=== PATIENT | female | born 1960 | race Caucasian/White ===

== ENCOUNTER 2025-04-05 23:45 | Inpatient (IN) | payer BC, SELFPAY ==
[2025-04-05] VITALS (11 sets, daily range): BP systolic 99–119; BP diastolic 41–74; BMI 24.4
--- NOTE | 2025-04-05 22:05 | ED.CVA ---
History of Present Illness
General
Chief Complaint: CVA/TIA Symptoms
Source: patient, family and ambulance crew
Exam Limitations: altered mental status
Time Seen by Provider: 04/05/25 22:02
Nursing documentation reviewed up to this point in time: agreed with
Onset of Stroke Symptoms
Onset of symptoms known: Yes
Date of onset of symptoms: 04/05/25
Time of onset of symptoms: 21:30
Time pt last seen normal is known: Yes
Date last time pt seen normal: 04/05/25
Time last time pt seen normal: 20:45
History of Present Illness
History of Present Illness:
Pt presents to ED secondary to sudden onset of inability to speak with facial droop, noted by daughter around 9:30pm. Daughter called 911 immediately. Upon arrival, patient is alert/awake but nonverbal, but following commands and moving extremities
spontaneously. Per daughter, pt has had previous history facial droop secondary to bells palsy, which had resolved completely. Of note, due to recent passing of her parent, patient has been depressed along with nausea sensation for the past 2 days,
with poor oral intake. As such, daughter had decided to take the patient to her house today. Last seen normal around 8:45pm.
Review of Systems
Review of Systems
Allergies reviewed?: Yes
All Other Systems: ROS reviewed and negative except as documented in HPI and ROS
Constitutional: Reports no symptoms
Respiratory: Reports no symptoms
Cardiac: Reports no symptoms
ABD/GI: Reports nausea and vomiting
Musculoskeletal: Reports no symptoms
Skin: Reports no symptoms
Neurological: Reports other (facial droop and speech impairment)
Phy Exam
Physical Exam
Physical Exam:
Physical Exam
General: mild distress, not acutely ill. afebrile
Head: nc/at. eomi
Neck: supple. no meningeal signs.
Heart: s1/s2 regular rate and rhythm
Lungs: no acute respiratory distress. clear bilaterally
Abdomen: normal bowel sounds. not tender.
Neuro: alert and oriented x 3. no focal motor deficit. nonverbal. right facial droop
Skin: no rash
Psychiatric: well kept. interactive and cooperative
Extremities: no edema. no calf tenderness.
Course
Orders/Labs/Results
Orders:
Orders
04/05/25 21:55
Electrocardiogram (*1) Urgent
Reason for Study: Other
Other Reason for Exam: Possible Stroke
Bedside Glucose- Treatment ONCE
Cardiac Monitoring- Treatment ONCE
Vital Signs As Directed
Frequency: Other
04/05/25 21:56
CT BRAIN PERF STROKE ALERT Stat
Comment: wrong exam ordered by RN
Reason For Exam: cva
CT HEAD STROKE ALERT W/o Cont Stat
Comment:
Reason For Exam: cva
CT HEAD/NECK ANG STROKE ALERT Stat
Comment:
Reason For Exam: cva
EKG- Treatment ONCE
04/05/25 21:58
Complete Blood Count/With Diff Urgent
Comprehensive Metabolic Panel Urgent
PTT Urgent
Prothrombin Time Urgent
04/05/25 21:59
Troponin I Urgent
04/05/25 22:26
Tenecteplase [Tnkase] 16 mg Syringe [Syringe Non-Pump] 0 ml IV NOW
04/05/25 23:15
Admit/Transfer Patient As Directed
Co-Sign Provider:
Level of Care: Inpatient admission
Assign to:: ICU
Physician / Group: carter
Diagnosis: CVA
Reason for Hospitalization: CVA
Expected length of stay greater than two midnights?: Yes
ELOS- Estimated Length of Stay in days: 3
I certify the patient meets the requirements for IP care: Yes
Code Status As Directed
Resuscitation Status: Full Code
PRN Pain Medication Management As Directed
May give lesser potent ordered pain med per pt: Yes
preference::
Protocol:: Medication orders for pain may be administered in a
manner that supports deferring to patient preference
when the pt is:
- Requesting an ordered lesser potent pain medication.
Least to most potent pain medications are defined
as: acetaminophen < NSAID < tramadol < opioids
(morphine, oxycodone, hydromorphone).
- Requesting a lesser dose of the same medication IF
ORDERED.
- Requesting a less intrusive route of administration
if both routes are prescribed by the provider (PO <
IV).
04/06/25 00:29
0.9% Sodium Chloride 1000 ml [Nss] 1,000 ml IV 80 mls/hr
Acetaminophen [Tylenol] 650 mg PO Q4HPRN PRN
04/06/25 00:29
Echo 2D MMode Color/Doppler Routine
Reason for Study: stroke/TIA
Electrocardiogram (*1) Routine
Reason for Study: TIA/Stroke
CARDIOLOGY CONSULT Routine
Consulting Provider: Joanie Cedillo
Was physician already notified: No
Reason for consult: elevated trop.
Case Management Consult Once
Case Management Consult: Discharge Planning
Consult Notification Routine
Specialty to Notify: Cardiology
Consult Notification Routine
Specialty to Notify: Neurology
Consult Notification Routine
Specialty to Notify: Physiatry
DIETARY IP CONSULT Routine
Reason for Consult: stroke/TIA
Implementation Advisor Consult Routine
Consulting Provider: Tawanna Urias
Was physician already notified: Yes
NEUROLOGY CONSULT Urgent
Consulting Provider: Leon Gallagher
Was physician already notified: No
Reason for consult: TIA s/p TNK
Conveyor Belt Repairer Urgent
Glycohemoglobin (HgbA1c) Routine
Comment: If not done in the ED
MR Brain Without Contrast Routine
Comment: complete 24 hrs post tenecteplase administration
Reason For Exam: possible stroke, status post tenecteplase
Recent pill cam endoscopy?: No
Hemetest Stools As Directed
Comment: hemoccult all stools if patient received tenecteplase
NIH Stroke Scale As Directed
Directions: Other
Comment: NIH stroke Scale to be completed prior to thrombolytic administration, then every 1 hour for 2
hours, then every shift and with change in condition and/or mental status.
Neurological Checks As Directed
Frequency: Per unit guidelines
Additional Instructions:: after start of thrombolytic therapy:
q15min x 2 hrs, q30min x 6 hrs, q1h x 16 hrs, q4h x 24 hrs, then every shift and
with any changes.
Notify MD As Directed
Notify physician if: - Any deterioration, change in neurological status, development of severe headache,
nausea and vomiting, or with any signs of bleeding. (see guidelines for suspected
intracerebral hemorrhage).
- If intracranial hemorrhage is suspected or confirmed by imaging, anticipate need for
osmotic diuretic to maintain euvolemia.
Notify MD As Directed
Notify physician if: Glucose less than 70 or greater than 180.
Anticipate corrective insulin orders.
Notify MD As Directed
Notify physician if: unable to obtain MRI of head within 22-32 hours of tenecteplase administration
- contact Neurology for order for CT of head without contrast
Patient Education As Directed
Type: Stroke education packet
Comment: provide to patient and family
Pneumatic Compression Sleeves As Directed
Type: Thigh high
Precautions As Directed
Type of Precautions: Bleeding
Comment: post Bleeding Precaution sign at bedside (if patient received tenecteplase)
Swallow Screening CVA/TIA ONLY As Directed
Comment: NPO until swallow screening completed
If patient FAILS swallow screening:: NPO and Speech consult and aspiration precautions
If patient PASSES swallow screening, diet:: Regular
Thrombolytic Precautions As Directed
Thrombolytic Precautions:: [place] bleeding precautions. Minimize invasive procedures and venipunctures,
avoid IM injections and over-handling patient, and check all puncture sites for
bleeding. Assess the patient and notify provider for signs and symptoms of
internal or serious bleeding, such as changes in vital signs or evidence of blood
in the urine or stool.
Additional instructions: Hemocult all stools.
Apply direct pressure or pressure dressing to any compressible puncture sites.
No ABG sampling or Alejandra insertion after Tenecteplase administration for 24 hours,
unless directed by the Neurologist/Attending.
Vital Signs As Directed
Frequency: q15m
Call for:: BP greater than 180/105 mmHg or less than 100/60 mmHg
Additional Instructions:: after start of thrombolytic therapy:
q15min x 2 hrs, q30min x 6 hrs, q1h x 16 hrs, q4h x 24 hrs, then every shift and
with any changes.
Ot Eval And Treat Routine
Physiatry Consult Routine
Consulting Provider: Ricky Gonsalves
Was physician already notified: No
Reason for consult: stroke/TIA
Pt Eval And Treat Routine
Activity Level: As Tolerated
Speech Therapy Eval & Treat Routine
DX Deep Vein Thrombosis Video Routine
04/06/25 00:34
Troponin I Q4H
04/06/25 04:29
Troponin I Q4H
04/06/25 06:00
Basic Metabolic Panel IN AM
Cardiovascular Evaluation IN AM
Complete Blood Count/No Diff IN AM
HCV Quantitative by NAAT [S] IN AM
Hepatitis A Antibody, Total IN AM
Hepatitis A IgM Antibody IN AM
Hepatitis B Core Ab, IgM IN AM
Hepatitis B Core Ab, Total IN AM
Hepatitis B Surface Antibody IN AM
Hepatitis B Surface Antigen IN AM
Hepatitis C Antibody IN AM
LFT [Rsivn-Zokp-Pyydhfm] IN AM
PTT IN AM
Prothrombin Time IN AM
04/06/25 08:00
US Abdomen Complete/Upper Routine
Comment:
Reason For Exam: Hepatitis
04/06/25 18:00
Atorvastatin [Lipitor] 40 mg PO QPM
Abnormal Lab Results
04/05/25 04/05/25 04/05/25
21:58 21:59 22:49
WBC 11.6 H 10^3/uL
(4.8-10.8)
RBC 4.09 L 10^6/uL
(4.20-5.40)
MCH 31.5 H pg
(27.0-31.0)
MPV 11.1 H fL
(7.4-10.4)
Absolute Neuts (auto) 7.2 H 10^3/uL
(1.4-6.5)
Absolute Monos (auto) 1.0 H 10^3/uL
(0.1-0.6)
BUN 21 H mg/dl
(7-17)
Glucose 123 H mg/dl
(70-99)
AST 260 H U/L
(14-36)
ALT 256 H U/L
(0-35)
Troponin I 2.730 H* ng/ml
POC Glucose 117 H mg/dl
(70-99)
04/05/25 21:58
04/05/25 21:58
Vital Signs
Initial and Last Documented VS:
Initial Vital Signs
Temp Pulse Resp BP Pulse Ox
98.7 F 80 16 99/41 99
04/05/25 21:52 04/05/25 21:52 04/05/25 21:52 04/05/25 21:52 04/05/25 21:52
Last Documented Vital Signs
Temp Pulse Resp BP Pulse Ox
98.7 F 72 20 115/54 93
04/05/25 21:52 04/06/25 00:45 04/06/25 00:45 04/06/25 00:45 04/06/25 00:45
MDM/Problems Addressed
MDM/Problems Addressed:
Stroke alert activated immediately upon evaluation. CT P/CTA/CT head ordered.
Discussed with stroke fellow at [facility] (10:12pm). Fellow will speak with his attending and call back with recommendation. In the meantime, does recommend TnK administration.
Stroke fellow (Dr.Ryan Gallagher) and attending physician logged on via robot and evaluated the patient. TnK check list recommended to be discussed with family, which was completed. Bleeding risk discussed with family, including potentially higher
than 6%, as initial CT is already revealing evidence of CVA. TnK to be administered.
TnK given @ 10:46 pm.
CTA reveals M2 occlusion. Neurology to callback with further recommendation.
Per neurology - no indication for IAT due to low NIH score. Does recommend repeat CTA, if there are any clinical changes.
Critical care statement: A total of 60 minutes of critical care time was provided for this patient. This includes management of unstable vital signs, evaluation of the patient at bedside, reviewing the patient's pertinent medical records, discussion
with consultants, review of old EKGs and review of pertinent medical records. This time with separate from time utilized to perform the aforementioned documented procedures
*Pulse Oximetry
Patient hypoxic: no
*Critical Care Note
Total Time (30-74mins, 75-104mins- exclusive of procedures): 60 min
ED Attending Note
-
Portions of this chart may have been created with voice recognition software.� Occasional wrong word or��sound alike� substitutions may have occurred due to the inherent limitations of voice recognition software.
Discharge Plan
Departure
Patient Disposition: Admit
Date of Disposition: 04/05/25
Time of Disposition: 22:54
Admit to: ICU
Presentation/result/management discussed w/ accepting MD/DO: Hospitalist
Discharge Problem:
Acute CVA (cerebrovascular accident)
Interventions
Interventions:
*Risk Screen - Suicide Last Done: 04/05/25 21:52
*General Assessment Last Done: 04/05/25 21:52
*Neglect/Abuse Screening Last Done: 04/05/25 21:52
*ED- Fall Risk Assessment Last Done: 04/05/25 21:52
*ED COVID-19 Vaccine History Last Done: 04/05/25 23:19
*Nursing Disposition Last Done: 04/06/25 00:33
ED- Pulmonary Assessment Last Done: 04/05/25 21:52
ED- Neurological Assessment Last Done: 04/05/25 21:52
ED- Cardiac Assessment Last Done: 04/05/25 21:52
ED Swallowing Screen Last Done: 04/05/25 21:52
Discharge Date and Time
Discharge Date/Time: 04/06/25 00:34
[2025-04-05 22:20] LABS: ALT (SGPT) 256 U/L (0-35); APTT 28.2 Sec (23.4-35.0); AST (SGOT) 260 U/L (14-36); Albumin 4.3 g/dl (3.5-5.0); Alkaline Phosphatase 104 U/L (38-126); Blood Urea Nitrogen 21 mg/dl (7-17); Calcium 8.6 mg/dl (8.4-10.2); Carbon Dioxide 26 mmol/L (22-30); Chloride 101 mmol/L (98-107); Estimated Creatinine Clearance 62 ml/min; Glucose 123 mg/dl (70-99); Hematocrit 37.2 % (37.0-47.0); Hemoglobin 12.9 g/dL (12.0-16.0); INR 1.09; Mean Corp Hgb Conc. 34.7 g/dL (33.0-37.0); Mean Corpuscular Volume 91.0 fL (81.0-99.0); Nucleated Red Blood Cells % 0 %; PT 14.5 Sec (11.4-14.6); Platelet Count 230 10^3/uL (130-400); Potassium 4.0 mmol/L (3.5-5.1); Red Cell Dist. Width 13.1 % (11.5-14.5); Sodium 135 mmol/L (135-145); Total Protein 7.1 g/dl (6.3-8.2); eGFR > 60.00
--- NOTE | 2025-04-05 22:23 | EDRN ---
Pharmacy aware of TNK order.
[2025-04-05 22:34] LABS: Troponin I 2.730 ng/ml
[2025-04-05] MEDS: TNKASE 3.2 MG IV (22:41)
[2025-04-05 22:50] LABS: Glucose - Point of Care 117 mg/dl (70-99)
--- NOTE | 2025-04-05 22:57 | HPS.HSE ---
Family Physician
-
Family Physician:
Chief Complaint
-
expressive aphasia and left facial droop
History of Present Illness
64 year old with anxiety presented with left facial droop and unable to speak. she was seen normal last at 8:45pm. as per daughter she was nauseous and vomited couple times. patient denied SOFIA, dizzy or syncope. denied fever, chills, chest pain, sob.
denied abdominal pain. denied dysuria or hematuria. her father on Wednesday. she is been under stress and grieving since then.
Head neck CTA n of the left middle cerebral artery M2 segment thrombus with occlusion. Head CT with questionable subtle loss of definition inferior left frontal lobe versus artifact.
Patient received TNK in the ER. Admitting for further management
Medical History
Past Medical History
Past Medical History: Reports Other
Additional Past Medical History:
Anxiety
Past Surgical History: Reports None
Social History
Tobacco: Non-smoker
Alcohol: None
Drug: None
Personal: Single
Living: Alone
Family History
Family History: Not pertinent
Allergies / Home Medications
Allergies reflects when Allergies were last updated in [facility].
Home Medications with original date entered in [facility]
Allergy/Medication List:
Allergies
Allergy/AdvReac Type Severity Reaction Status Date / Time
No Known Allergies Allergy Unverified 04/05/25 22:10
Home Medications
citalopram 20 mg tablet 20 mg PO HS 04/05/25
Review of Systems
-
Constitutional: Reports No Symptoms
EENT: Reports No Symptoms
Respiratory: Reports No Symptoms
Cardiac: Reports No Symptoms
Abdomen/GI: Reports Nausea and Vomiting
: Reports No Symptoms
Musculoskeletal: Reports No Symptoms
Skin: Reports No Symptoms
Neurological: Reports Other (Left facial droop, aphasic)
Endocrine: Reports No Symptoms
Hematologic/Lymphatic: Reports No Symptoms
Psych: Reports No Symptoms
Physical Exam
Vital Signs
Vital Signs
Temp Pulse Resp BP Pulse Ox
98.7 F 78 23 117/57 94
04/05/25 21:52 04/05/25 22:46 04/05/25 22:46 04/05/25 22:46 04/05/25 22:46
Physical Exam
General: Well Developed, Well Nourished and No Apparent Distress
HEENT: NormoCephalic, Moist mucous membranes and Atraumatic
Respiratory: Clear
Cardiac: S1/S2 and Regular Rhythm; No Murmur or Rub
GI: Soft, Non Tender, Non Distended and Normal Bowel Sounds; No Organomegaly
Rectal: Deferred by Provider
Musculoskeletal: No Clubbing, No Cyanosis and No Edema
Skin: No Rash
Neuro: Nonfocal/grossly intact and Other (Left facial droop, aphasia)
Laboratory Results
-
04/05/25 21:58
04/05/25 21:58
Laboratory Results
PT 14.5 Sec (11.4-14.6) 04/05/25 21:58
INR 1.09 04/05/25 21:58
APTT 28.2 Sec (23.4-35.0) 04/05/25 21:58
Total Bilirubin 0.8 mg/dl (0.2-1.3) 04/05/25 21:58
AST 260 U/L (14-36) H 04/05/25 21:58
ALT 256 U/L (0-35) H 04/05/25 21:58
Alkaline Phosphatase 104 U/L (38-126) 04/05/25 21:58
Troponin I 2.730 ng/ml H* 04/05/25 21:59
Data Reviewed
-
CT Scan: Report Reviewed by me
Lab Data: Labs Reviewed by me
Impression/Plan
-
# Expressive aphasia with facial droop secondary to CVA
#left middle cerebral arteryM2 segment thrombus with occlusion
- Patient received TNK in the ER
- Head and neck CTA with impression of Left middle cerebral artery M2 segment thrombus with occlusion.
- Head CT No acute intracranial hemorrhage.Questionable subtle loss of definition inferior left frontal lobe versus artifact.
-obtain MRI and ECHO
-neurology consulted
-PT/OT consulted
# Leukocytosis likely reactive
- WBCs 11.6, patient is afebrile
- Continue to monitor
#abdominal upset associated with n/v
# Transaminitis
- AST 260, ALT 256
-obtain hep panel, and abdominal US
-trend LFT in am
# Elevated troponin rule out NSTEMI
-Troponin 2.73
-Continue to trend Trope
-EKG with sinus rhythm with ST abnormality
-cards consulted
# Anxiety
-on citalopram
# DVT prophylaxis
-SCD
# CODE STATUS
-Full code
-
--- NOTE | 2025-04-05 23:28 | W.PN.UPDATE ---
Addendum entered and electronically signed by Didi Apple MD 04/05/25 23:52:
*per [facility], with patient's low NIHSS score and M2 occulsion IAT not indicated
Original Note:
Update Note
Progress Note Update
This is an addendum to H&P written by CERTIFIED SURGICAL TECH/FIRST ASSISTANT Jahaira Belcher
I saw and examined the patient.
The CERTIFIED SURGICAL TECH/FIRST ASSISTANT's note was reviewed and I agree with the note.
Comment:
Ms. Joyce Troy is a 64 yo woman with hx anxiety brought to the ER with sudden onset facial droop and expressive aphasia noticed by daughter around 9:30 PM. Patient denies chest pain. She has felt depressed with recent loss of her father 2 days
ago.
Triage VS: T 98.7, P 80, RR 16, BP 99/41, SpO2 99%
On exam patient is awake, alert. severe expressive aphasia, left facial droop, moves all 4 extremities and easily follows commands.
LABS: WBC 11.6, Hg 12.9, PLT 230, INR 1.09, Na 135, K+ 4.0, Cl 101, CO2 26, BUN 21, Cr 0.8, Glucose 123, T. Bili 0.8, AST 260, ALT 256, Alk Phos 104, Trop 2.730
EKG with TWI lateral leads
HEAD CT
IMPRESSION:
No acute intracranial hemorrhage.
Questionable subtle loss of definition inferior left frontal lobe versus artifact.
BRAIN CT
Abnormality in the left frontal operculum.
CTA
IMPRESSION:
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
Acute CVA
M2 segment thrombus
-s/p TNK at 22:41. Case discussed between ER physician Dr. Mcgowan and [facility]. Per [facility], IAT not indicated for M2 occlusion
-admit to ICU
-q1 hour neuro checks
-MRI 24 hours post tPA. start antiPLT post MRi confirming no bleed
-atorvastatin 40mg qhs
-PT/OT/ST
-Neurology consult
-Mold Cleaning And Storage Supervisor consult
Elevated Troponin
TWI lateral leads
-patient denies chest pain
-s/p TNk as above
-trend Troponin
-TTE
-Cardiology consult
Nausea/vomiting
Transaminitis
-IVF overnight, as patient NPO
-US in AM, hep serologies
Anxiety
-HRIS COORDINATOR Citalopram
DVT PPx post TNK, start 24 hours post TNK
FULL CODE
Total Critical Care Time 45 minutes. I was immediately available to the patient and staff. I personally examined, reviewed labs, diagnostic images/reports, interpretations, treatment plans, discussed patient care with other providers and family
or caregivers (if patient is unable to make decisions), entered orders as appropriate and documented the medical record.
[2025-04-06] VITALS (39 sets, daily range): BP systolic 90–132; BP diastolic 45–84; BMI 23.6; BMI 23.7
--- NOTE | 2025-04-06 00:24 | PTCARENOTE ---
Addendum entered by Slime Venegas RN 04/06/25 05:26:
Unable to complete EKG ordered at this time. EKG machine not working.
Original Note:
Patient received from the ED via stretcher accompanied by RN. Transferred and admitted to ICU bed 3361. NIHSS completed with ED RN Alanna. No facial droop noted. However, marked expressive aphasia and some receptive aphasia noted. PERRL at 3mm. No
tongue deviation. Follows commands. Some receptive aphasia noted with apraxia test of UEs with finger to finger/nose. Complete CHG cloth bath with fresh linen. IVF started per order. See sales agent business services charted on worklist flowsheet. S1S2 regular,
positive murmur. SR on CM. BBS clear. Positive pulses x 4 extremities, no edema. Bed in low and locked position, HOB up 30 degrees, bed alarm on, call mcclendon within reach.
[2025-04-06 00:32] LABS: Glucose - Point of Care 106 mg/dl (70-99)
[2025-04-06] MEDS: NSS 1000 IV (00:35)
[2025-04-06 01:13] LABS: Troponin I 2.530 ng/ml
--- NOTE | 2025-04-06 03:00 | PTCARENOTE ---
Patient oxygen saturation is 93-94%. Edwin SCHOOL CLEANER notified, order requested for prn oxygen to keep sats > 94%. SBP 91-102. Edwin SCHOOL CLEANER notified. Order received to give 250cc IVF bolus, given. Patient's expressive aphasia unchanged.
[2025-04-06] MEDS: NSS 250 IV (03:16)
--- NOTE | 2025-04-06 03:35 | PTCARENOTE ---
IVF bolus still infusing, SBP 90. No change in neuro assessment. Sats 92-93% on RA. Oxygen at 2L/nc donned.
[2025-04-06 05:06] LABS: Hematocrit 35.2 % (37.0-47.0); Hemoglobin 12.2 g/dL (12.0-16.0); Mean Corp Hgb Conc. 34.7 g/dL (33.0-37.0); Mean Corpuscular Volume 90.3 fL (81.0-99.0); Platelet Count 180 10^3/uL (130-400); Red Cell Dist. Width 12.9 % (11.5-14.5)
[2025-04-06 05:14] LABS: APTT 25.5 Sec (23.4-35.0); INR 1.12; PT 14.7 Sec (11.4-14.6)
--- NOTE | 2025-04-06 05:26 | PTCARENOTE ---
Essentially no change in patient's neurological or physical assessment. Denies pain. Repositioning self in bed. AM labs drawn. Unable to perform EKG, attempts to put information in EKG manually unsuccessful. VSS-- Sats 99% on 2L/nc. BP improved
after IVF bolus.
[2025-04-06 05:47] LABS: Troponin I 1.650 ng/ml
[2025-04-06 05:49] LABS: ALT (SGPT) 175 U/L (0-35); AST (SGOT) 139 U/L (14-36); Albumin 2.8 g/dl (3.5-5.0); Alkaline Phosphatase 64 U/L (38-126); Blood Urea Nitrogen 14 mg/dl (7-17); Calcium 6.4 mg/dl (8.4-10.2); Carbon Dioxide 20 mmol/L (22-30); Chloride 114 mmol/L (98-107); Estimated Creatinine Clearance 83 ml/min; Glucose 87 mg/dl (70-99); HDL Cholesterol 37 mg/dl; LDL Cholesterol, Calculated 75 mg/dl; Potassium 3.4 mmol/L (3.5-5.1); Sodium 138 mmol/L (135-145); Total Protein 5.0 g/dl (6.3-8.2); Very Low Density Lipoprotein 19 mg/dl (0-30); eGFR > 60.00
[2025-04-06] MEDS: LR 1000 IV ×2 (06:11→21:57)
[2025-04-06] MEDS: CALCIUM GLUCONATE 130 MG IV (06:20)
--- NOTE | 2025-04-06 06:35 | PTCARENOTE ---
fuel quality tech at bedside to perform abdominal ultrasound.
--- NOTE | 2025-04-06 07:01 | CON.INTV ---
Consultation
Consultation Request
Date/Time Consultation Requested: 04/06/25
Date/Time Consultation Performed: 04/06/25
Performing Provider: Adonay
Reason for Consultation: CVA
Medical History
-
History of Present Illness:
Patient is a 64 year old with past history of anxiety presented to ER with left facial droop and inability to speak. 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 Per daughter, she was nauseous and vomited a couple times at home. Patient denied SOFIA,
dizzy, syncope, fever/chills, chest pain, SOB, abdominal pain. Head & Neck CTA demonstrated left middle cerebral artery M2 segment thrombus with occlusion. Head CT with questionable subtle loss of definition inferior left frontal lobe versus
artifact. Patient received TNK in the ER. Admitted to ICU for further management post CVA intervention.
Past Medical History
Past Medical History: Other (see list below)
Social History
Tobacco: Non-smoker
Alcohol: None
Drug: None
Family History
Family History: Reviewed & Not Pertinent
Allergies / Home Medications
Allergies
Allergy/AdvReac Type Severity Reaction Status Date / Time
No Known Allergies Allergy Unverified 04/05/25 22:10
Home Medications
�Medication �Instructions �Recorded �Confirmed �Last Taken �Type
citalopram 20 mg tablet 20 mg PO HS 04/05/25 04/05/25 Unknown History
Review of Systems
-
History Source: Patient
All other systems: Negative unless noted
Vitals / Labs / Diagnostic Testing
Vital Signs
Temp Pulse Resp BP Pulse Ox
98.3 F 71 25 114/57 98
04/06/25 03:25 04/06/25 06:30 04/06/25 06:30 04/06/25 06:30 04/06/25 06:30
Lab Data
04/06/25 04:43
04/06/25 04:44
Laboratory Results
04/05/25 04/06/25
21:58 04:45
PT 14.5 14.7 H
INR 1.09 1.12
APTT 28.2 25.5
Diagnostic Testing:
Physical Exam
-
HEENT: Normocephalic, Anicteric and Moist Mucous Membranes
Cardiovascular: S1/S2 and Regular Rhythm
Respiratory: Clear and Non-Labored Respirations
GI: Non Distended and Non Tender
Neurology: Awake, Alert, Oriented and No Motor Deficits
Skin: Warm, Dry and Good Color
General: Comfortable and Other (NAD)
Assessment
-
Patient is a 64 year old with past history of anxiety presented to ER with left facial droop and inability to speak. She was last seen normal at 8:45pm day of admission. Per daughter, she was nauseous and vomited a couple times at home. Patient
denied SOFIA, dizzy, syncope, fever/chills, chest pain, SOB, abdominal pain. Head & Neck CTA demonstrated left middle cerebral artery M2 segment thrombus with occlusion. Head CT with questionable subtle loss of definition inferior left frontal lobe
versus artifact. Patient received TNK in the ER. Admitted to ICU for further management post CVA intervention.
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
Elevated trops
N/V
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
Anxiety
Plan
s/p TNK for CVA
Neuroimaging reviewed
Neuro consult obtained
Observe overnight following administration, careful watch for signs of bleeding
Follow CBC, neurovascular checks
Repeat MRI this PM
Prior cardiac history-none known
Cards eval obtained for initial evaluation post CVA
Currently stable on RA
No prior h/o lung disease, nonsmoker
Aspiration precautions
CXR reviewed--mild cardiomeg, but no acute findings
Restart diet per protocol
Speech evaluation
GI ppx
Creat at baseline, follow UO
No signs/symptoms suspicious for infectious etiology at this time.��
Will observe off antibiotics for now.
DVT ppx held, SCDs
Can likely transfer to tele post MRI this evening
We will sign off upon transfer
Diagnostic Data
Chest X-Ray: 04/06/25- 1. Haziness of left hemidiaphragm, suggestive of left lower lobe subsegmental atelectasis. 2. Mild cardiomegaly without evidence of decompensated CHF.
EKG with TWI lateral leads
HEAD CT IMPRESSION: No acute intracranial hemorrhage. Questionable subtle loss of definition inferior left frontal lobe versus artifact.
BRAIN CT: Abnormality in the left frontal operculum.
CTA IMPRESSION: Left middle cerebral artery M2 segment thrombus with occlusion.
Echo:
PFT's:
Reports and relevant images were personally reviewed.
Critical Care time 50 mins -- The patient is admitted for acute critical illness for the treatment of vital organ failure and/or prevention of further life-threatening conditions. Total care includes time spent in review of history, physical exam,
medications, hemodynamic/ventilator parameters, laboratory data, imaging and discussion with house staff, pharmacy, respiratory therapy, retirement sales consultant, and nursing.
[2025-04-06 07:17] LABS: Glycohemoglobin (HgbA1c) 5.7 % (4.0-5.6)
[2025-04-06] MEDS: KCL 270 MEQ IV (07:34)
--- NOTE | 2025-04-06 07:37 | PTCARENOTE ---
Report given verbally to oncoming shift, Regina MACKEY. Bedside rounds complete, NIHSS complete. Questions answered.
[2025-04-06 07:38] LABS: Hepatitis B Surface Antigen Negative (Negative)
--- NOTE | 2025-04-06 07:38 | W.PN.HOSP.TC ---
Today's Communication/Plan
-
See plan
Assessment / Plan
Assessment / Plan
Physical Exam
General: Well Developed, Well Nourished and No Apparent Distress
HEENT: Normocephalic, Moist mucous membranes and Atraumatic
Respiratory: Clear
Cardiac: S1/S2 and Regular Rhythm
GI: Soft, Non Tender, Non Distended and Normal Bowel Sounds
Musculoskeletal: No Cyanosis and No Edema
Skin: Warm. Dry.
Neuro: AAOx3. Cranial Nerves 2 through 12 intact. Strength and sensation grossly intact bilaterally.
Assessment/Plan
64 y/o female with history of anxiety brought to the ER with sudden onset facial droop and expressive aphasia noticed by daughter around 9:30 PM on 04/07/25 (was last seen normal at 8:45 pm). as per As per patient's daughter, patient was nauseous
and vomited a couple times. Patient denied chest pain. She has felt depressed with recent loss of her father 2 days ago.
Triage VS: T 98.7, P 80, RR 16, BP 99/41, SpO2 99%
On exam patient is awake, alert. severe expressive aphasia, left facial droop, moves all 4 extremities and easily follows commands.
LABS: WBC 11.6, Hg 12.9, PLT 230, INR 1.09, Na 135, K+ 4.0, Cl 101, CO2 26, BUN 21, Cr 0.8, Glucose 123, T. Bili 0.8, AST 260, ALT 256, Alk Phos 104, Trop 2.730
EKG with TWI lateral leads
HEAD CT
IMPRESSION:
No acute intracranial hemorrhage.
Questionable subtle loss of definition inferior left frontal lobe versus artifact.
BRAIN CT
Abnormality in the left frontal operculum.
CTA
IMPRESSION:
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
Acute CVA
M2 segment thrombus
-s/p TNK at 22:41. Case discussed between ER physician Dr. Mcgowan and [facility]. Per [facility], IAT not indicated for M2 occlusion
*per [facility], with patient's low NIHSS score and M2 occulsion IAT not indicated
-admit to ICU
-q1 hour neuro checks
-MRI 24 hours post tPA. Stop any aspirin and clopidogrel from a neurological perspective when starting anticoagulation 48 hours after TNK.
-atorvastatin 40mg qhs
-PT/OT/ST
-Neurology consult
-Housing Installer consult
Elevated Troponin
TWI lateral leads
-patient denies chest pain
-echocardiogram�EF 40% with LV thrombus. Suspected Takotsubo cardiomyopathy in the setting of recent stress from her father's passing
-s/p TNk as above
-trend Troponin
-Patient okay for IV heparin 48 hours AFTER TNK -- so 22:41 on 04/07/25 evening.
-Cardiac catheterization on 04/08/25.
-Cardiology consult
Nausea/vomiting
Transaminitis
-IVF overnight, as patient NPO
-US: Gallbladder wall thickening of unknown etiology.
-Follow hep serologies
Anxiety
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
DVT PPx post TNK, start 24 hours post TNK
FULL CODE
Stroke s/p TNK, LV thrombus and low cardiac ejection fraction is a high risk encounter.
Anticipated Discharge: > 48 hours
Subjective/Interval History
-
Date of Service: April 06, 2025
Patient was seen and examined. She reported most of her neurologic symptoms back to normal.
Objective Data
-
Labs:
Laboratory Results
04/05/25 04/06/25 04/06/25
21:58 04:43 04:44
WBC 11.6 H 9.6
Hgb 12.9 12.2
Hct 37.2 35.2 L
Plt Count 230 180 D
PT 14.5
INR 1.09
APTT 28.2
Sodium 135 138
Potassium 4.0 3.4 L
Chloride 101 114 H
Carbon Dioxide 26 20 L
BUN 21 H 14
Creatinine 0.8 0.4 L
Glucose 123 H 87
Calcium 8.6 6.4 L* D
Total Bilirubin 0.8 0.6
AST 260 H 139 H
ALT 256 H 175 H
Alkaline Phosphatase 104 64
04/06/25
04:45
WBC
Hgb
Hct
Plt Count
PT 14.7 H
INR 1.12
APTT 25.5
Sodium
Potassium
Chloride
Carbon Dioxide
BUN
Creatinine
Glucose
Calcium
Total Bilirubin
AST
ALT
Alkaline Phosphatase
Vital Signs:
Vital Signs
Temp Pulse Resp BP Pulse Ox
98.3 F 73 18 117/59 98
04/06/25 03:25 04/06/25 07:00 04/06/25 07:00 04/06/25 07:00 04/06/25 07:00
I&O
04/05/25 04/06/25 04/07/25
06:59 06:59 06:59
Intake Total 780 / 780 350 / 350
Balance 780 / 780 350 / 350
[2025-04-06 07:56] LABS: Hepatitis A Antibody, Total Negative (Negative); Hepatitis C Antibody Negative (Negative)
--- NOTE | 2025-04-06 08:15 | PTCARENOTE ---
Assumed care of pt at 0715 following shift report. Bedside NIHSS completed w/ outgoing shift RN. Pt w/ noted to be unable to name objects in shown picture and impaired in ability to describe actions happening in a action scene picture. No
dysarthria. No apparent conversational word finding difficulty. Ox3. Denies c/oSOB or pain, specifically headache or CP. O2 at 2l/min w/ POx 98%.- placed on RA w/ POx 92-94%- O2 reapplied at 2l/min w/ POx improved to upper 90's. Physical assessment
completed as documented. NPO at present time- Speech therapy to eval. Bladder scan completed as pt HNV since admission. Bladder scan = 478. Pt denies need to urinate. Straight cath completed for 500ml. Call hakan w/in pt reach and safe environment
maintained.
--- NOTE | 2025-04-06 08:30 | CON.CAR ---
Addendum entered and electronically signed by Ang Greenberg DO 04/06/25 09:01:
I saw and examined the patient.
The Lumber Cutter's note was reviewed and I agree with the note.
Comment:
Patient is a pleasant 64-year-old female with a past medical history significant for Thao's palsy and anxiety admitted with new left MCA M2 CVA treated with TNK. In discussion with patient, she reported her father's passing unexpectedly this past
Wednesday. Since Wednesday, she is experienced episodes of fluttering/palpitations, chest tightness worse with exertion relieved with rest, and shortness of breath with activity and exertion. Patient admitted now demonstrating elevated troponin which
is downtrending. Additionally, EKG demonstrates fairly diffuse T wave abnormality more prominent in the precordial leads. Patient is a non-smoker, no alcohol, no illicits. And no reported significant family history of heart disease.
GENERAL: no acute distress, on O2 nasal cannula support
EYE: sclera anicteric
NECK: Supple, no JVD, no carotid bruit appreciated
ENT: normal nose, moist mucosal membranes
CARDIAC: Regular rate and rhythm, +S1/S2, no murmur, rubs, or gallops
CHEST/PULMONARY: Normal effort, clear breath sounds
ABDOMEN: Soft, without focal tenderness or distention
NEUROLOGICAL: Alert and oriented x3
SKIN: Warm and dry, no rash
PSYCH: Normal and appropriate interaction.
Telemetry sinus rhythm PVCs no demonstrated AF/AFL or pauses
EKG 04/05/2025, 04/06/2025 demonstrates sinus rhythm diffuse T wave inversion with nonspecific ST abnormality
A/P as below
Patient admitted with acute stroke treated with TNK, appreciate input and management by neurology
Continue to monitor on telemetry
Check echocardiogram, concern for possible ischemic heart disease/scad versus nonischemic cardiomyopathic process such as Takotsubo
Start aspirin when okay with neurology, continue statin
Further recommendations to follow testing
Discussed with neurology, nursing
Original Note:
Consultation
Consultation Request
Date/Time Consultation Performed: 04/06/25
Requesting Provider: Dr. Roman
Performing Provider: Liya Marshall PA-C for Dr. Greenberg
Reason for Consultation: elevated troponin
Medical History
-
Chief Complaint: slurred speech, facial droop
History of Present Illness:
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 Since that time she has been grieving, and his passing has been very difficult for
her. Yesterday she came to stay with her daughter, and around 9:30 PM daughter noted slurred speech and facial droop. She called 911 and patient was brought to ER for evaluation. Head CT showed M2 occlusion and received TNK. She had improvement
in symptoms, however remains with some expressive aphasia. Cardiology consulted as EKG noted to have diffuse T wave inversions and troponin elevated at 2.7 and has trended down since admission. She denies chest pain, shortness of breath,
palpitations. She denies cardiac history.
PMH:
Anxiety
History of Thao's palsy
Past Medical History
Past Medical History: Other (in HPI)
Social History
Tobacco: Non-Smoker
Alcohol: None
Living: Alone
Employment: Employed
Family History
Family History: Other (heart disease in mother, who at age 48)
Allergies / Home Medications
Allergy/AdvReac Type Severity Reaction Status Date / Time
No Known Allergies Allergy Unverified 04/05/25 22:10
�Medication �Instructions �Recorded �Confirmed �Type
citalopram 20 mg tablet 20 mg PO HS 04/05/25 04/05/25 History
Review of Systems
-
History Source: Patient
All other systems: Negative unless noted
Physical Exam
Vital Signs
Temp Pulse Resp BP Pulse Ox
98.6 F 73 18 117/59 98
08/01/25 07:00 04/06/25 07:00 04/06/25 07:00 04/06/25 07:00 04/06/25 07:00
Lab Results
04/06/25 04:43
04/06/25 04:44
Troponin I 1.650 ng/ml H* D 04/06/25 04:43
Physical Exam
General: No Apparent Distress, Comfortable and Other (on supp O2)
HEENT: Normocephalic, Anicteric and Moist Mucous Membranes
Respiratory: Clear and Non Labored Respirations
Cardiac: S1/S2 and Regular Rhythm
GI: Soft, Non Tender, Non Distended and Normal Bowel Sounds
Musculoskeletal: No Clubbing, No Cyanosis and No Edema
Skin: Warm and Dry
Neuro: AO x 3
Impression / Plan
-
Primary Glue Spreader: none prior to admission
Assessment:
Presentation with facial droop, change in speech
Acute M2 segment CVA s/p TNK 04/05/25
Elevated troponin
N/V
Transaminitis
Anxiety
History of Thao's Palsy
ECHO 04/06/25: pending
Plan:
- Patient presented with facial droop and change in speech noted by patient's daughter. By CTA was noted to have acute M2 segment occlusion and underwent TNK administration last evening. She improved with this, although remains with some degree of
expressive aphasia per nursing. She was able to answer all questions appropriately on my examination.
- Cardiology consulted as noted to have elevated troponin which peaked at 2.7 on arrival and subsequently trending down as well as EKG with fairly diffuse T wave inversions
- Denies chest pain or shortness of breath
- Check echo
- Concern for Takotsubo cardiomyopathy with recent stress of her father's passing earlier this week
- Would consider for eventual ischemic evaluation with cardiac cath, likely early next week pending neuro recommendations
- Start aspirin when ok per neuro post TNK. not candidate for IV heparin with recent TNK, and as trops downtrending without CP, will hold off
- LDL 75. lipitor 40mg QPM started
- Replete K
- avoid hypotension in setting of CVA.
- follow on tele. in SR.
- d/w nursing
Data Reviewed
-
EKG: Tracing Personally Visualized and interpreted
CT Scan: Report Reviewed by me
Labs: Labs Reviewed by me
Old Records: Reviewed
--- NOTE | 2025-04-06 08:37 | CON.NEURO4 ---
Addendum entered and electronically signed by Leon Gallagher MD 04/06/25 11:12:
Studies reviewed.
I have personally examined the patient. I reviewed and agree with the CRIBBING SETTER's Note.
My addenda:
Awake, alert, interactive. No acute distress. Wearing oxygen
Speech intact.
Follows 2-step requests w/o difficulty. No tremor.
Extra-ocular movements grossly intact.
Facial movements full and symmetric. Hearing intact to normal conversational volume.
Normal UE movements bilaterally.
Neck: full ROM.
Chest: no dyspnea
Heart: no JVD
Ext: (-) Clubbing, (-) Cyanosis, (-) Edema
IMPRESSIONS/RECOMMENDATIONS:
Abrupt onset of aphasia
CT perfusion confirmed left frontal area of stroke leading to use of TNK
Strongly possible that the patient has a cardiac etiology for clot development
Initiate aspirin and clopidogrel; would discontinue both medications if embolic source is discovered from the heart. In the interim provide both medications for 21 days, then aspirin alone
Provide atorvastatin due to LDL greater than 70
D/W patient
Will continue to follow pending results.
Original Note:
Documented by User: Ricarda Barrios NP 04/06/25 10:05
Consultation - Neurology 4
-
CONSULTING PHYSICIAN: Leon Gallagher MD
REFERRING PHYSICIAN: Hospitalists/MARIAN Telles
DICTATED BY: MARIAN Florence
DATE/TIME OF REQUEST: 04/06/25
DATE/TIME OF CONSULTATION: 04/06/25
Reason for Consultation: Stroke Alert
History of Present Illness:
This is a 64-year-old right-handed female who has presented to the hospital on 04/05/25 with report of aphasia. Patient reports a significant amount of stress in the past two weeks with the hospitalization of multiple family members and work
stressors. Three days on 04/03/25 her father . She reports having significant chest and mid back discomfort immediately following his . She also notes she was unable to keep food down and vomited, and she has eaten very little over
the past few days. She has felt weak and short of breath while walking and she needs to stop frequently, lean on furniture and rest. Last evening (04/05/25) at 2130 her daughter noted that the patient suddenly couldn't speak and her right face
appeared droopy. She had last seen her at her baseline at 2044. Patient has a history of right-sided Thao's palsy but her facial drooping had completely resolved. She called EMS who activated a stroke alert and TeleStroke was consulted. CT head, CTA
head/neck, and CT perfusion were obtained and demonstrated a left M2 occlusion, a mismatch volume of 32ml, and Aspects score 9. NIHSS was a 6 for global aphasia, severe slurring, and mild facial drooping. TNK was administered per protocol. Today
(04/06/25), patient reports that her neurological symptoms have resolved and she is back to her baseline with the exception of her chest discomfort, fatigue, shortness of breath. She denies any headache, dizziness, vision changes, speech/swallow
difficulty, numbness, and focal weakness. She does not that has has been unable to urinate and required catheterization. She denies any history of TIA, stroke, or event like this in the past. She was not taking any blood thinning medications.
Past Medical History: Anxiety, thao's palsy
Surgical History: Denies.
Family History: Reviewed and noncontributory.
Social History: Denies alcohol, tobacco, and illicit drug use.
Allergies: No known allergies.
Home Medications: See below.
Review of Symptoms:
Patient denies any fever, headache, chest pain, shortness of breath, GI or symptoms.
�Per the HPI.�All systems are reviewed negative except above.
Physical Exam:
The patient is afebrile, abdomen is nondistended, breathing is unlabored, skin is warm and dry, no edema.
NIH Stroke Scale:
I performed the NIH stroke scale on the patient on 04/06/25 at 0845. The patient scored 0 points on the NIH stroke scale assessment, which were assigned as follows: See below.
Neurologic Examination:
The patient is awake, alert and oriented x 3. She is able to follow commands and answer questions appropriately. There is no aphasia or dysarthria. On cranial nerve assessment, pupils are 3 mm bilateral, round and reactive to light and
accommodation. Visual bourne are full. Extraocular movements are intact. Facial sensations are intact and bilaterally symmetrical, there is no facial asymmetry. Hearing is intact bilaterally to normal conversation volume. Tongue palate and uvula are
midline. Sternocleidomastoid strengths are full bilaterally. Motor strengths are 5/5 bilateral upper and lower extremities on medical [facility] [place] scale. There is no drift or involuntary movement noted. Deep tendon reflexes are 2+ bilateral
upper and lower extremities and Babinski is absent bilaterally. There was no extinction noted on double simultaneous stimulation. Coordination is intact by finger to nose bilaterally.
Lab Results: See below.
Neuro Imaging:
1. CT Head 04/05/25: No acute intracranial hemorrhage. Questionable subtle loss of definition inferior left frontal lobe versus artifact. Aspects score: 9.
2. CTA Head/Neck 04/05/25: Left middle cerebral artery M2 segment thrombus with occlusion.
3. CT Perfusion 04/05/25: TMAX 22ml, CBF 11ml, mismatch ratio 2.6, mismatch volume 32ml.
Differentials for the patient's presentation include:
1. Acute left hemisphere ischemic stroke in the setting of a L M2 occlusion/thrombus; etiology likely cardioembolic.
Patient has the following risk factors for their symptoms: elevated troponin, recent stress
IV Tenecteplase/IAT candidacy: Patient received TNK per protocol. M2 occlusion too distal for IAT.
Recommendations:
� administer IV Tenecteplase (TNK) per protocol urgently while keeping patient's blood pressure to a goal of systolic less than 185 and diastolic less than 110 mmHg during infusion of TNK
� place the patient in medical ICU
� goal blood pressure over the next 24 hours would be less than 180/105 mmHg
� check MRI of the brain within 22-32 hours of TNK without contrast for localization of the stroke
� hold all antiplatelets, OAC meds, DOAC meds, heparinoids for next 24 hours
� LDL goal <70. LDL is 75. Continue newly initiated atorvastatin 40mg daily.
� goal blood glucose levels for patient would be less than 180 mg/dL, hbA1c is 5.7.
� Speech, PT, OT evaluations needed
� Physiatry consultation warranted
� DVT prophylaxis with sequential compression devices over next 24 hours, can be started on Enoxaparin subcutaneous for DVT prophylaxis beginning 24 hours after TNK provision.
� medical educational materials will be provided
� check an echocardiogram, if unremarkable would recommend SAMANTHA
We will follow.
Discussed patient care with: Dr. Gallagher, the patient
Vital Signs and Labs
-
Vital Signs and Labs:
Vital Signs
Temp Pulse Resp BP Pulse Ox
98.6 F 73 18 117/59 98
04/06/25 07:00 04/06/25 07:00 04/06/25 07:00 04/06/25 07:00 04/06/25 07:00
Lab Results
04/06/25 04:43
04/06/25 04:44
PT 14.7 Sec (11.4-14.6) H 04/06/25 04:45
INR 1.12 04/06/25 04:45
APTT 25.5 Sec (23.4-35.0) 04/06/25 04:45
Sodium 138 mmol/L (135-145) 04/06/25 04:44
Potassium 3.4 mmol/L (3.5-5.1) L 04/06/25 04:44
BUN 14 mg/dl (7-17) 04/06/25 04:44
Glucose 87 mg/dl (70-99) 04/06/25 04:44
Calcium 6.4 mg/dl (8.4-10.2) L* D 04/06/25 04:44
LDL Cholesterol, Calc 75 mg/dl 04/06/25 04:44
Medications
-
Active Medications
Generic Name Dose Route Start Last Admin
Trade Name Freq PRN Reason Stop Dose Admin
Acetaminophen 650 mg 04/06/25 00:29
Acetaminophen 325 Mg Tablet PO 05/04/25 00:28
Q4HPRN PRN
SOFIA, mild pain, or temp >100.4F
Atorvastatin Calcium 40 mg 04/06/25 18:00
Atorvastatin (Lipitor) 40 Mg Tablet PO 05/04/25 17:59
QPM CECELIA
Lactated Ringer's 1,000 mls @ 80 mls/hr 04/06/25 06:00 04/06/25 06:11
Lr IV 1,000 mls
.[id number] CECELIA Administration
Potassium Chloride 40 meq/ 270 mls @ 67.5 mls/hr 04/06/25 06:15 04/06/25 07:34
Dextrose IV 04/06/25 10:14 270 mls
ONCE ONE Administration
Sodium Chloride 0 flush 04/06/25 01:00
Sodium Chloride 0.9% (Flush) Syringe IV 05/04/25 00:59
PER PROTOCOL CECELIA
Thiamine HCl 100 mg 04/06/25 10:00
Thiamine (100 Mg/Ml) 2 Ml Vial IV 04/09/25 09:59
DAILY CECELIA
Home Medications
�Medication �Instructions �Recorded
citalopram 20 mg tablet 20 mg PO HS 04/05/25
NIH Stroke Score
Subsequent NIH Scale
Date of Subsequent NIH Scale: 04/06/25
Time of Subsequent NIH Scale: 08:45
NIH Stroke Score
Level of Consciousness: 0 - Alert
LOC Questions: 0-Answers both correctly
LOC Commands: 0-Performs both correctly
Best Horizontal Gaze: 0-Normal
Visual Bourne: 0=Normal, no visual loss
Facial Palsy: 0=Normal, symmetrical
Motor - Right Arm: 0=No drift 10 seconds
Motor - Left Arm: 0=No drift 10 seconds
Motor - Right Le-No drift 5 seconds
Motor - Left Le-No drift 5 seconds
Limb Ataxia: 0-Absent
Sensation: 0-Normal
Best Language: 0-No aphasia
Dysarthria: 0-Normal
Extinction and Inattention: 0-No abnormality
NIH Total Score:: 0
Modified Lynn (mRS) Score
Modified Charla Scale (mRS): No symptoms
Score: 0
Alteplase Contraindication
Inclusion and Exclusion criteria reviewed: Yes

Documented by User: Leon Gallagher MD 04/06/25 10:55
NIH Stroke Score
NIH Stroke Score
NIH Total Score:: 0
Modified Lynn (mRS) Score
Score: 0
--- NOTE | 2025-04-06 11:38 | PTOTSP ---
Speech Therapy Evaluation:
Swallowing:
Pt with acute risk factor of dysphagia (L MCA thrombosis), however oropharyngeal swallow appears functional at bedside. No overt s/sx of aspiration observed across trials, CXR without pneumonia, WBC WNL, pt passed 3oz, vitals stable, and pt without
dysphagia hx.
Language:
Pt earned an overall score of 7.53 on the QAB, indicative of MILD aphasia. Pt with expressive > receptive deficits with reductions in sentence comprehension, word finding, grammatical construction, and reading (error x1). In conversation, pt
demonstrated mildly reduced length and complexity of utterances with reduced speech rate. Occasional word finding deficits appreciated. During structured tasks, pt demonstrated notable difficulty with picture naming with occasional perseverations.
Overall communication impairment evident, however pt able to independently communicate wants, needs, ideas, etc.
Recommend:
1. Continue regular solids and thin liquids
2. Medications as tolerated
3. General aspiration precautions
4. STORAGE MANAGEMENT ARCHITECT to follow for swallowing, likely brief to monitor tolerance of diet
5. STORAGE MANAGEMENT ARCHITECT to follow for above mentioned language deficits
[2025-04-06] MEDS: THIAMINE INJECTION 100 MG IV (11:52)
--- NOTE | 2025-04-06 12:00 | PTCARENOTE ---
Echo completed at bedside. Waiting on ordered US of madison VELARDE. Pt assisted w/ AM hygiene-CHG bath, washed face, brushed teeth. Assisted in ordering breakfast- pt demonstrated ability to order from menu understanding and choosing desired items. Pt's
daughter, son and DIL visiting at bedside. Updated on pt's present condition, plan of care. All questions answered. No complaints offered or changes noted from previous assessment findings.
--- NOTE | 2025-04-06 12:19 | CM ---
Initial assessment completed with patient and son with D-I-L in room. Patient lives alone in a 2 story house plus basement, B/B on 2nd and 1/2 bath on 1st, 2 steps to enter. MEDICAL RECORD LIBRARIAN patient was independent in ambulation and ADL's, drove. No DME and no
in-home services. PCP is Dr. Regina Rodas, Pharmacy is [facility] in [place]. No HC-POA. Discharge POC: Awaiting therapy evaluation.
--- NOTE | 2025-04-06 13:58 | W.PN.UPDATE ---
Update Note
Progress Note Update
Back to see patient to review echocardiogram�EF 40% with LV thrombus. Suspected Takotsubo cardiomyopathy in the setting of recent stress from her father's passing. She remains chest pain-free. Discussed with neurology. Patient okay for IV
heparin 48 hours post TNK. Will plan for cardiac catheterization on Wednesday, discussed with patient. Discussed with nursing. Discussed with patient's daughter Sachi via telephone and updated for 10:01.
--- NOTE | 2025-04-06 14:05 | W.PN.UPDATE ---
Update Note
Progress Note Update
Based on the discovery of relatively low cardiac ejection fraction, and LV thrombus, would discontinue both aspirin and clopidogrel from a neurological perspective when starting anticoagulation.
Would avoid starting anticoagulation until 48 hours after start of symptoms.
Will follow peripherally
--- NOTE | 2025-04-06 14:33 | CON.MR ---
Documented by User: Saba Lopez MD, Resident 04/06/25 17:11
Consultation
Consultation Request
Date/Time Consultation Requested: 04/06/25
Date/Time Consultation Performed: 04/06/25 12:30 pm
Requesting Provider: Agustin Roman
Performing Provider: Dr. Gonsalves
Reason for Consultation: Stroke symptoms: dysarthria, right facial weakness
Medical History
-
Chief Complaint: Dysarthria, right facial weakness
History of Present Illness:
Ms. Joyce Troy is a 64yoF presenting with dysarthria and right facial weakness 04/05 evening. Left frontal stroke. Received TNK 04/05 at 2245 pm.
Also, patient's is grieving her father's recent passing on 04/03. EF 40% found on echocardiogram. Patient has a cardiac cath scheduled Wednesday04/09/25 for evaluation of CAD (asymptomatic) in the workup of heart failure. Working diagnosis is Takotsubo
cardiomyopathy.
Past Medical History
Past Surgical History: (x2), Orthopedic (Laminectomy) and Other (1 more surgery in LLQ abdomen; pt unable to recall/express name)
Family History
Family History: Cancer (Father had liver and lung cancer. Mom had breast cancer) and Other (Mom had rheumatoid arthritis)
Social History
Functional Level Premorbidity:
Independent for all activities.
Current Funct Level: Ambulation, Transfer, UE/LE Dressing:
Pending OT/PT eval 24 hours after TNK, given 2245 04/05
PACKAGER
Swallowing:
Pt with acute risk factor of dysphagia (L MCA thrombosis), however oropharyngeal swallow appears functional at bedside. No overt s/sx of aspiration observed across trials, CXR without pneumonia, WBC WNL, pt passed 3oz, vitals stable, and pt without
dysphagia hx.
Language:
Pt earned an overall score of 7.53 on the QAB, indicative of MILD aphasia. Pt with expressive > receptive deficits with reductions in sentence comprehension, word finding, grammatical construction, and reading (error x1). In conversation, pt
demonstrated mildly reduced length and complexity of utterances with reduced speech rate. Occasional word finding deficits appreciated. During structured tasks, pt demonstrated notable difficulty with picture naming with occasional perseverations.
Overall communication impairment evident, however pt able to independently communicate wants, needs, ideas, etc.
Recommend:
1. Continue regular solids and thin liquids
2. Medications as tolerated
3. General aspiration precautions
4. PACKAGER to follow for swallowing, likely brief to monitor tolerance of diet
5. PACKAGER to follow for above mentioned language deficits
Tobacco: Non-Smoker
Alcohol: None
Drug: None
Living: Alone
Is 24 hour care available: Yes
Number of Floors: 2
# Steps to Enter: 0
# Steps to Second Floor: 12
Potential First Floor Set Up: Yes
Driving: Yes
Employment: Employed
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
Allergies / Home Medications
Allergy/AdvReac Type Severity Reaction Status Date / Time
No Known Allergies Allergy Unverified 04/05/25 22:10
�Medication �Instructions �Recorded �Confirmed �Last Taken �Type
citalopram 20 mg tablet 20 mg PO HS Mental Health/Anxiety 04/05/25 04/05/25 Unknown History
Review Of Systems
-
History Source: Patient
Eye: Reports No Symptoms
Respiratory: Reports No Symptoms
Cardiac: Reports No Symptoms
Abdomen/GI: Reports Constipated
: Reports Difficulty Voiding
Musculoskeletal: Reports No Symptoms
Integumentary: Reports No Symptoms
Neurological: Reports Other (Difficulty with some cognitive activities (such as pictures) during speech language therapy)
Psych: Reports Other (sad over father's recent )
Physical Exam
Active Medications
Generic Name Dose Route Start Last Admin
Trade Name Freq PRN Reason Stop Dose Admin
Acetaminophen 650 mg 04/06/25 00:29
Acetaminophen 325 Mg Tablet PO 05/04/25 00:28
Q4HPRN PRN
SOFIA, mild pain, or temp >100.4F
Atorvastatin Calcium 40 mg 04/06/25 18:00
Atorvastatin (Lipitor) 40 Mg Tablet PO 05/04/25 17:59
QPM CECELIA
Lactated Ringer's 1,000 mls @ 80 mls/hr 04/06/25 06:00 04/06/25 06:11
Lr IV 1,000 mls
.[id number] CECELIA Administration
Sodium Chloride 0 flush 04/06/25 01:00
Sodium Chloride 0.9% (Flush) Syringe IV 05/04/25 00:59
PER PROTOCOL CECELIA
Thiamine HCl 100 mg 04/06/25 10:00 04/06/25 11:52
Thiamine (100 Mg/Ml) 2 Ml Vial IV 04/09/25 09:59 100 mg
DAILY CECELIA Administration
Vital Signs
Temp Pulse Resp BP Pulse Ox
99.1 F 77 24 114/47 96
04/06/25 11:00 04/06/25 10:00 04/06/25 10:00 04/06/25 10:00 04/06/25 10:00
Height 5 ft 4 in
Actual Weight 62.5 kg
Body Mass Index (BMI) 23.7
Physical Exam
Physical Exam:
General Appearance/Observation: Well-developed, well-nourished individual in no apparent distress.
Pain/Comfort Assessment: Denies
Mood/Affect: Appropriate, sad
Integumentary/Operative Site:
Pressure Ulcer: absent
5 cm ecchymosis at medial left forearm
Eyes: Conjunctiva/Lids: normal Pupils: pupils equal round and reactive to light and Accommodation
Ears/Nose/Throat: oral mucosa moist, throat clear. Lips/Teeth/Gums: normal
Neck: No muscle spasm or tenderness
Cardiovascular: Heart: regular, no murmur
Pulses: radial 2+ bilaterally
Respiratory: Respiratory Effort/Chest Expansion: normal Auscultation: Clear to auscultation bilaterally
Gastrointestinal: abdomen not tender, no distension, normal abdominal bowel sounds
Genitourinary: No Alejandra
Rectal Exam: Deferred
Extremities: Edema: None Cyanosis: None Trophic changes: None
Neurology Exam:
Orientation: Alert, Oriented to self, Time, Place
Higher cortical function
Speech: Intact
Comprehension: Intact
Two step command: Intact
Naming: Intact
Cranial Nerves:
CNII: Pupillary light reflex: Intact Visual Field: Intact
CN III, IV, : Extraocular muscles: Intact
CN V: Facial Sensation at Forehead: Intact , Maxilla: Intact, Mandible: Intact
CN VII: Facial movement: Symmetric
CN VIII: Hearing: Normal
CN IX/X: Speech & swallow: Normal, Position of Uvula: Midline
CN XI: Shoulder shrug: Symmetric
CN XII: Tongue protrusion: Midline
Sensory:
Light touch: Intact in bilateral upper and lower extremities
Reflexes:
Biceps: 2+ bilaterally
Brachioradialis: 2+ bilaterally
Triceps: 2+ bilaterally
Patellar: 2+ bilaterally
Achilles: 2+ bilaterally
Babinski: Downgoing bilaterally
Clonus: None
Marielle: Negative bilaterally
Cerebellar: Dysmetria/Ataxia: None
Musculoskeletal:
Motor: (Manual muscle scale 0-5)
Muscle SA EF WE EE FF FA HF KE DF EHL PF
Right 5 5 5 5 5 5 5 5 5 5 5
Left 5 5 5 5 5 5 5 5 5 5 5
Tone: Normal in all extremities
Range of Motion: Passively within normal limits in all extremities
Lab Results
04/06/25 04:43
04/06/25 04:44
WBC 9.6 10^3/uL (4.8-10.8) 04/06/25 04:43
Hgb 12.2 g/dL (12.0-16.0) 04/06/25 04:43
Hct 35.2 % (37.0-47.0) L 04/06/25 04:43
MCV 90.3 fL (81.0-99.0) 04/06/25 04:43
Plt Count 180 10^3/uL (130-400) D 04/06/25 04:43
PT 14.7 Sec (11.4-14.6) H 04/06/25 04:45
INR 1.12 04/06/25 04:45
Sodium 138 mmol/L (135-145) 04/06/25 04:44
Potassium 3.4 mmol/L (3.5-5.1) L 04/06/25 04:44
Chloride 114 mmol/L (98-107) H 04/06/25 04:44
Carbon Dioxide 20 mmol/L (22-30) L 04/06/25 04:44
BUN 14 mg/dl (7-17) 04/06/25 04:44
Creatinine 0.4 mg/dL (0.6-1.0) L 04/06/25 04:44
eGFR > 60.00 04/06/25 04:44
Glucose 87 mg/dl (70-99) 04/06/25 04:44
Hemoglobin A1c 5.7 % (4.0-5.6) H 04/06/25 04:43
Calcium 6.4 mg/dl (8.4-10.2) L* D 04/06/25 04:44
Total Bilirubin 0.6 mg/dl (0.2-1.3) 04/06/25 04:44
Direct Bilirubin 0.4 mg/dl (0.0-0.4) 04/06/25 04:44
AST 139 U/L (14-36) H 04/06/25 04:44
ALT 175 U/L (0-35) H 04/06/25 04:44
Alkaline Phosphatase 64 U/L (38-126) 04/06/25 04:44
Total Protein 5.0 g/dl (6.3-8.2) L D 04/06/25 04:44
Albumin 2.8 g/dl (3.5-5.0) L D 04/06/25 04:44
Diagnostic Results
Head CT 04/05
No acute intracranial hemorrhage.
Questionable subtle loss of definition inferior left frontal lobe versus artifact.
Head/neck CTA 04/05
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
CXR 04/06
1. Haziness of left hemidiaphragm, suggestive of left lower lobe subsegmental atelectasis.
2. Mild cardiomegaly without evidence of decompensated CHF.
Abd u/s 04/06
1. Gallbladder wall thickening of unknown etiology. No gallstones, and no gallbladder distention. Consider contrast enhanced CT of the abdomen and pelvis for further evaluation.
2. Liver is of normal sonographic appearance.
Peripheral vascular U/S 04/06/25
No evidence of DVT from the common femoral through the upper calf veins on either side.
Assessment / Plan
Assessment
Ms. Joyce Troy is a 64yoF who had a stroke (M2 occlusion) associated with dysarthria and right facial weakness. Received TNK 04/05 at 2245 pm and pending PT/OT evaluations. Her right facial weakness has resolved. She has mild naming, word-finding,
and other language and cognitive difficulties. PMH is notable for Thao's palsy of the right face, which completely resolved prior to the stroke.
Also, patient's is grieving her father's recent passing on 04/03. EF 40% found on echocardiogram. Patient has a cardiac cath scheduled Wednesday04/09/25 for evaluation of CAD (asymptomatic) in the workup of heart failure. Working diagnosis is Takotsubo
cardiomyopathy.
Plan
PM&R PT/OT to increase independence with ADLs, improve balance, coordination, endurance, strength, mobility, community reintegration, decreased burden of care on others and family education.
CVA: Secondary prophylaxis with atorvastatin 40 mg qpm and blood pressure control (SBP less than 180 and diastolic less than 100 to participate with therapy for ischemic stroke). Continue to monitor neurologic status.
Dysarthria: speech evaluation
HF: EF 40%
- Concern for Takotsubo cardiomyopathy in setting of father's recent passing (04/03/25). Cardiac cath scheduled for Wednesday04/09/25 to evaluate for CAD as a cause of HF
Psych: Psychology consult. Monitor mood, adjust medications as needed. Continue with citalopram 20 mg PO HS
Skin: monitor for pressure sores/rashes/lesions.
Pain: acetaminophen or oxycodone as needed.
Bowel: Colace and Senna, PRN bisacodyl.
Bladder: Time void, PVRs, PRN straight cath.
GI Prophylaxis: Pantoprazole
DVT Prophylaxis: SCDs in setting of recent TNK
Pulmonary: Incentive spirometry
Safety: Continue to reinforce assistance with all transfers.
Code Status: Full code
Dispo (date/plan/equipment needs): Home with family care. Social history reviewed.
Functional and Medical Goals: Modified Independent with ADL�s, ambulation, transfers
Summary
-
Summary of recommendations:
- Discharge Destination: Pending OT/PT evaluations. Anticipate home with outpatient speech/language therapy, but patient's abilities may guide changer remaining hospital course.
- Continue home citalopram 20 mg PO HS
Will continue to follow patient.
Thank you for allowing me to care for your patient. Please contact me with any questions or concerns.
Comments
-
This note was dictated using a voice recognition system. Please excuse any typographical errors from [employer]. If you believe there are any discrepancies, please notify our office.

Documented by User: Ricky Gonsalves MD 04/06/25 18:52
Medical History
-
History of Present Illness:
Ms. Joyce Troy is a 64-year-old right handed female with past medical history (as below) presenting with concern for aphasia and right facial droop on the evening of 04/05/25. She has been under a lot of stress recently including her father
passing away on 04/03/2025. She has felt weak and short of breath with walking requiring frequent breaks. When she developed the aphasia and facial droop her daughter brought her to the hospital. She does have a history of right Thao's palsy that
had completely resolved. She was noted to have global aphasia, severe slurring and mild facial drooping. CT of the head with no intracranial hemorrhage and questionable subtle loss of definition inferior left frontal lobe versus artifact. CTA
head and neck with left middle cerebral artery M2 segment thrombus with occlusion. She received TNK 04/05 at 2245 pm. She has had a significant improvement in her symptoms with some persistent aphasia. Also with chest discomfort, fatigue and
shortness of breath. She also had urinary retention requiring catheterization.
Also, patient's is grieving her father's recent passing on 04/03. Concern for possible ischemic heart disease versus nonischemic cardiomyopathic process such as Takotsubo. Plan to start aspirin when okay with neurology. She had echocardiogram with
EF 40% and an LV thrombus with suspected Takotsubo cardiomyopathy. Patient has a cardiac cath scheduled Wednesday04/09/25 for evaluation of CAD (asymptomatic) in the workup of heart failure. Per neurology avoid anticoagulation for 48 hours after the
start of symptoms and with no need for aspirin and clopidogrel if patient is going to be anticoagulated.
Overall patient is feeling fine except for aphasia. She is concerned about her heart and the thrombus in the heart. She denies any difficulties with vision, swallowing, numbness, tingling, weakness.
Past Medical History
Past Medical History: Psychiatric (Anxiety) and Other (Right Thao's palsy that resolved)
Review Of Systems
-
Constitutional: Reports No Symptoms
EENT: Reports No Symptoms
Neurological: Reports Other (Difficulty with some cognitive activities (such as pictures) during speech language therapy, aphasia)
Physical Exam
Physical Exam
Physical Exam:
General Appearance/Observation: Well-developed, well-nourished female in no apparent distress.
Pain/Comfort Assessment: Denies
Mood/Affect: Appropriate, sad
Integumentary/Operative Site: 5 cm ecchymosis at medial left forearm
Eyes: Conjunctiva/Lids: normal Pupils: pupils equal round and reactive to light and Accommodation
Ears/Nose/Throat: oral mucosa moist, throat clear. Lips/Teeth/Gums: normal
Neck: No muscle spasm or tenderness
Cardiovascular: Heart: regular, no murmur
Pulses: radial 2+ bilaterally
Respiratory: Respiratory Effort/Chest Expansion: normal Auscultation: Clear to auscultation bilaterally
Gastrointestinal: abdomen not tender, no distension, normal abdominal bowel sounds
Genitourinary: No Alejandra
Rectal Exam: Deferred
Extremities: Edema: None Cyanosis: None Trophic changes: None
Neurology Exam:
Orientation: Alert, Oriented to self, Time, Place
Comprehension: Intact
Two step command: Intact
Naming: Intact
Repetition: Intact
Able to tell the time from analog clock across the room.
Cranial Nerves:
CNII: Pupillary light reflex: Intact Visual Field: Intact
CN III, IV, : Extraocular muscles: Intact
CN V: Facial Sensation at Forehead: Intact , Maxilla: Intact, Mandible: Intact
CN VII: Facial movement: Slight right facial asymmetry
CN VIII: Hearing: Normal
CN IX/X: Speech & swallow: Expressive and receptive aphasia, dysarthria Position of Uvula: Midline
CN XI: Shoulder shrug: Symmetric
CN XII: Tongue protrusion: Midline
Sensory:
Light touch: Intact in bilateral upper and lower extremities, no extinction to double simultaneous stimulation
Reflexes:
Biceps: 2+ bilaterally
Brachioradialis: 2+ bilaterally
Triceps: 2+ bilaterally
Patellar: 2+ bilaterally
Achilles: 2+ bilaterally
Babinski: Downgoing bilaterally
Clonus: None
Marielle: Negative bilaterally
Cerebellar: Dysmetria/Ataxia: None
Musculoskeletal: Motor: (Manual muscle scale 0-5)
Muscle SA EF WE EE FF FA HF KE DF EHL PF
Right 5 5 5 5 5 5 5 5 5 5 5
Left 5 5 5 5 5 5 5 5 5 5 5
Tone: Normal in all extremities
Range of Motion: Passively within normal limits in all extremities
Assessment / Plan
Assessment
64 y/o R handed F PMH (anxiety and resolved right Thao's palsy) with 04/05/25 receptive and expressive aphasia and right facial weakness from left M2 occlusion status post TNK with significant improvement of symptoms and cardiomyopathy with EF of 40%
with LV thrombus concerning for Takotsubo cardiomyopathy versus ischemic heart disease
. She has been under a lot of stress recently including her father passing away on 04/03/2025. She has felt weak and short of breath with walking requiring frequent breaks. When she developed the aphasia and facial droop her daughter brought her
to the hospital. She does have a history of right Thao's palsy that had completely resolved. She was noted to have global aphasia, severe slurring and mild facial drooping. CT of the head with no intracranial hemorrhage and questionable subtle
loss of definition inferior left frontal lobe versus artifact. CTA head and neck with left middle cerebral artery M2 segment thrombus with occlusion. She received TNK 04/05 at 2245 pm. She has had a significant improvement in her symptoms with
some persistent aphasia. Also with chest discomfort, fatigue and shortness of breath. She also had urinary retention requiring catheterization.
Also, patient's is grieving her father's recent passing on 04/03. Concern for possible ischemic heart disease versus nonischemic cardiomyopathic process such as Takotsubo. Plan to start aspirin when okay with neurology. She had echocardiogram with
EF 40% and an LV thrombus with suspected Takotsubo cardiomyopathy. Patient has a cardiac cath scheduled Wednesday04/09/25 for evaluation of CAD (asymptomatic) in the workup of heart failure. Per neurology avoid anticoagulation for 48 hours after the
start of symptoms and with no need for aspirin and clopidogrel if patient is going to be anticoagulated.
Plan
PM&R PT/OT to increase independence with ADLs, improve balance, coordination, endurance, strength, mobility, community reintegration, decreased burden of care on others and family education.
CVA: Secondary prophylaxis with atorvastatin 40 mg qpm and blood pressure control (SBP less than 180 and diastolic less than 100 to participate with therapy for ischemic stroke). Per neurology no need for aspirin and Plavix if patient has been to
be anticoagulated continue to monitor neurologic status.
Dysarthria: Speech
Receptive/expressive aphasia: speech
Cardiomyopathy: EF 40%
- Concern for Takotsubo cardiomyopathy in setting of father's recent passing (04/03/25). Cardiac cath scheduled for Wednesday04/09/25 to evaluate for CAD as a cause
Psych: Monitor mood, has anxiety history. On citalopram 20 mg PO HS
Skin: monitor for pressure sores/rashes/lesions.
Pain: acetaminophen as needed.
Bowel: Colace and Senna, PRN bisacodyl.
Bladder: Time void, PVRs, PRN straight cath. Noted with urinary retention requiring catheterization.
DVT Prophylaxis: SCDs in setting of recent TNK, possible anticoagulation per cardiology after 48 hours limitation by neurology.
Pulmonary: Incentive spirometry
Safety: Continue to reinforce assistance with all transfers.
Code Status: Full code
Dispo (date/plan/equipment needs): Home with family care. Social history reviewed.
Functional and Medical Goals: Modified Independent with ADL�s, ambulation, transfers
Discharge Destination: Pending OT/PT evaluations. Doing well on bedside exam except for dysarthria and aphasia. If she does not require assistance with ADLs and ambulation she will benefit from outpatient therapy with speech therapy. To be further
assessed
Will continue to follow.
Attending Statement:
I saw and examined the patient today. Reviewed care plan with patient, and resident. I agree with the above subjective and review of systems as adjusted above. My physical exam, and plan as documented. A total of 60 minutes were spent with the
patient preparing for the evaluation, obtaining history, performing examination and evaluation, counseling, data review, case management, care coordination, data entry representative, and EMR documentation.
Summary
-
Summary of recommendations:
- Discharge Destination: Pending OT/PT evaluations. Anticipate home with outpatient speech/language therapy, but patient's abilities may guide changer remaining hospital course.
- Continue home citalopram 20 mg PO HS
Will continue to follow patient.
Thank you for allowing me to care for your patient. Please contact me with any questions or concerns.
[2025-04-06 16:23] LABS: C-Reactive Protein 73.40 mg/L (0.0-10.00)
--- NOTE | 2025-04-06 16:30 | PTCARENOTE ---
Pt continues to rest quietly in bed. Remains on BR per order Julio SMITH. No complaints or changes from previous assessment findings.
[2025-04-06] MEDS: LIPITOR 40 MG PO (17:28)
[2025-04-06 17:31] LABS: Folate > 20.0 ng/ml (2.76-20); Vitamin B12 838 pg/ml (239-931)
--- NOTE | 2025-04-06 20:30 | PTCARENOTE ---
NIH 1, mild aphasia. Unable to find words for pictures. Consistent with previous shift. Movement 5/5 in all 4 extremities. Facial droop has resolved. Able to make needs known. PERRLA 4, brisk. GCS 15. MRI completed as ordered. Pt resting comfortably
with son at bedside. Will monitor.
[2025-04-06] MEDS: CELEXA 20 MG PO (21:57)
[2025-04-07] VITALS (18 sets, daily range): BP systolic 96–124; BP diastolic 46–90; BMI 24.4
[2025-04-07 04:47] LABS: Hematocrit 31.9 % (37.0-47.0); Hemoglobin 10.7 g/dL (12.0-16.0); Mean Corp Hgb Conc. 33.5 g/dL (33.0-37.0); Mean Corpuscular Volume 92.7 fL (81.0-99.0); Platelet Count 158 10^3/uL (130-400); Red Cell Dist. Width 12.9 % (11.5-14.5)
[2025-04-07 05:04] LABS: Albumin 3.2 g/dl (3.5-5.0); Blood Urea Nitrogen 11 mg/dl (7-17); Calcium 8.0 mg/dl (8.4-10.2); Carbon Dioxide 25 mmol/L (22-30); Chloride 106 mmol/L (98-107); Estimated Creatinine Clearance 83 ml/min; Glucose 112 mg/dl (70-99); Potassium 4.1 mmol/L (3.5-5.1); Sodium 135 mmol/L (135-145); eGFR > 60.00
[2025-04-07] MEDS: FLEXBUMIN 100 IV (06:22)
--- NOTE | 2025-04-07 07:32 | W.PN.INTV ---
Today's Communication / Plan
Recommendations
ECHO reviewed, initiate heparin this evening when >48 hours post TNK
US LE negative, PT/OT when able, likely in AM
Speech following
MRI Reviewed, further CVA management per Neuro
Diet advanced
Transfer to IMU, we will sign off upon transfer
Assessment
-
Patient is a 64 year old with past history of anxiety presented to ER with left facial droop and inability to speak. She was last seen normal at 8:45pm day of admission. Per daughter, she was nauseous and vomited a couple times at home. Patient
denied SOFIA, dizzy, syncope, fever/chills, chest pain, SOB, abdominal pain. Head & Neck CTA demonstrated left middle cerebral artery M2 segment thrombus with occlusion. Head CT with questionable subtle loss of definition inferior left frontal lobe
versus artifact. Patient received TNK in the ER. Admitted to ICU for further management post CVA intervention.
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
LV Thrombus 1.8cm. x 1.2 cm
NICM EF 40% likely TCM
Elevated trops
N/V
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
Anxiety
Plan
s/p TNK for CVA @2200 04/05/25
Neuroimaging reviewed
Neuro consult obtained
Observe overnight following administration, careful watch for signs of bleeding
Follow CBC, neurovascular checks
Repeat MRI showing multiple areas of CVA (LFL, RPL)
Prior cardiac history-none known
Cards eval obtained for initial evaluation post CVA
ECHO showing new LV thrombus, cannot initiate heparin until 48 hours post TNK--tonight
She is bedrest for now
LE US negative
Currently stable on RA
No prior h/o lung disease, nonsmoker
Aspiration precautions
CXR reviewed--mild cardiomeg, but no acute findings
Restart diet per protocol
Speech evaluation
GI ppx
Creat at baseline, follow UO
No signs/symptoms suspicious for infectious etiology at this time.��
Will observe off antibiotics for now.
DVT ppx held, SCDs
PT/OT when cleared for OOB
Can likely transfer to IMU with these findings
Diagnostic Data
Chest X-Ray: 04/06/25- 1. Haziness of left hemidiaphragm, suggestive of left lower lobe subsegmental atelectasis. 2. Mild cardiomegaly without evidence of decompensated CHF.
EKG with TWI lateral leads
HEAD CT IMPRESSION: No acute intracranial hemorrhage. Questionable subtle loss of definition inferior left frontal lobe versus artifact.
BRAIN CT: Abnormality in the left frontal operculum.
CTA IMPRESSION: Left middle cerebral artery M2 segment thrombus with occlusion.
Brain MRI 04/06/25- In the anterolateral left frontal lobe, there is a focal wedge-shaped area of abnormal diffusion-weighted and ADC map signal, with increased T2 and FLAIR signal as well. This would be compatible with an area of acute to subacute
infarction. Small foci of decreased signal intensity in this region on susceptibility weighted images, compatible with foci of petechial hemorrhage. Small peripheral focus of acute to subacute infarct in the lateral and inferior right parietal lobe
near the parieto-occipital junction. Slightly more posteriorly, superiorly, and medially within the right parietal lobe, punctate focus of acute to subacute infarct.
Echo: 04/06/25-Normal left ventricular wall thickness. Normal left ventricular chamber size. Mildly reduced left ventricular systolic function. Left ventricular ejection fraction is 40% by Nicholas's method. Ririe and all mid to distal segments appear
akinetic with a thrombus seen in the apex measuring 1.8cm. x 1.2 cm. Diastolic function indeterminate. Normal right ventricular size and function. Normal atria. Moderate to severe tricuspid regurgitation. Estimated pulmonary artery pressure of 41
mmHg, assuming a right atrial pressure of 3 mmHg. Trivial pericardial effusion. The IVC is of normal size and partially collapses. Interatrial septum is intact with no evidence of shunting by color flow Doppler. No prior study for comparison.
US LE 04/06/25- No evidence of DVT from the common femoral through the upper calf veins on either side.
PFT's:
Reports and relevant images were personally reviewed.
Critical Care time 40 mins -- The patient is admitted for acute critical illness for the treatment of vital organ failure and/or prevention of further life-threatening conditions. Total care includes time spent in review of history, physical exam,
medications, hemodynamic/ventilator parameters, laboratory data, imaging and discussion with house staff, pharmacy, respiratory therapy, pelota maker, and nursing.
Subjective Dataa
Subjective Data
Date of Service:
Date of Service: April 07, 2025
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
Subjective:
NO new events ON, remains stable
No new complaints
Objective Data
Data Reviewed
Vital Signs / I&O / Oxygen:
Vital Signs
Temp Pulse Resp BP Pulse Ox
99.9 F 86 21 115/51 97
04/07/25 03:12 04/07/25 07:00 04/07/25 07:00 04/07/25 07:00 04/07/25 07:00
Intake and Output
04/06/25 04/07/25 04/08/25
06:59 06:59 06:59
Intake Total 780 / 860 2830 / 2830
Output Total 1000 / 1000
Balance 780 / 860 1830 / 1830
SaO2 97
Nasal Cannula flow liters per 2
minute
Physical Exam
General: Comfortable and Other (NAD)
HEENT: Normocephalic, Anicteric and Moist Mucous Membranes
Cardiovascular: S1-S2 and Regular Rhythm
Respiratory: Clear and Non-Labored Respirations
GI: Soft, Non Distended and Non Tender
Neurology: Awake, Alert, Oriented and No Motor Deficits
Skin: Warm, Dry and Good Color
Labs/Micro/Reports
Lab Data
04/07/25 04:23
04/07/25 04:23
[2025-04-07] MEDS: THIAMINE INJECTION 100 MG IV (07:41)
[2025-04-07] MEDS: LR 1000 IV ×2 (07:41→22:55)
--- NOTE | 2025-04-07 08:21 | PTCARENOTE ---
Assumed care of pt. NIH 1, mild aphasia. Unable to find words for pictures. Consistent with previous shift. Movement 5/5 in all 4 extremities. Facial droop has resolved. Able to make needs known. PERRLA 4, brisk. GCS 15. Pt resting comfortably. Call
mcclendon within reach.
--- NOTE | 2025-04-07 08:23 | W.PN.CARDCBS ---
Today's Communication / Plan
-
IV heparin when able
Ischemic evaluation Wednesday
Initiate goal-directed medical therapy when okay from neurology standpoint/BP standpoint
Impression / Plan
-
Primary Engineer/Conductor: none prior to admission
Assessment:
Presentation with facial droop, change in speech
Acute M2 segment CVA s/p TNK 04/05/25
Cardiomyopathy, new, unclear etiology EF 40%
LV thrombus
Elevated troponin
N/V
Transaminitis
Anxiety
History of Thao's Palsy
ECHO 04/06/25: Normal LV size, wall thickness, EF 40% with mid to distal/apical akinesis, apical thrombus 1.8 x 1.2 cm, normal RV size and function, moderate to severe TR PASP 41 mmHg, trivial pericardial effusion
Plan:
- Patient presented with facial droop and change in speech noted by patient's daughter. By CTA was noted to have acute M2 segment occlusion and underwent TNK administration last evening. She improved with this, although remains with some degree of
expressive aphasia per nursing. She was able to answer all questions appropriately on my examination.
- Cardiology consulted as noted to have elevated troponin which peaked at 2.7 on arrival and subsequently trending down as well as EKG with fairly diffuse T wave inversions
- Ischemic evaluation with cardiac cath, likely early next week pending neuro recommendations; plan to initiate GDMT when okay from neurologic standpoint
- Start aspirin when ok per neuro post TNK; start IV heparin when okay with neurology for LV thrombus
- LDL 75. lipitor 40mg QPM started
- Replete K
-BP recommendations per neurology
- follow on tele. in SR.
- d/w nursing
Progress Note - Engineer/Conductor
Subjective
Date of Service: April 07, 2025
Patient seen and examined this morning. No acute events overnight. Patient resting comfortably in bed. Patient Nuys any chest pain, shortness of breath, palpitations, lightheadedness, dizziness, or weakness.
Objective
Labs:
04/07/25 04:23
04/07/25 04:23
Labs
Hgb 10.7 g/dL (12.0-16.0) L 04/07/25 04:23
Hct 31.9 % (37.0-47.0) L 04/07/25 04:23
Plt Count 158 10^3/uL (130-400) 04/07/25 04:23
PT 14.7 Sec (11.4-14.6) H 04/06/25 04:45
INR 1.12 04/06/25 04:45
APTT 25.5 Sec (23.4-35.0) 04/06/25 04:45
Sodium 135 mmol/L (135-145) 04/07/25 04:23
Potassium 4.1 mmol/L (3.5-5.1) 04/07/25 04:23
BUN 11 mg/dl (7-17) 04/07/25 04:23
Creatinine 0.5 mg/dL (0.6-1.0) L 04/07/25 04:23
Glucose 112 mg/dl (70-99) H 04/07/25 04:23
Troponins
04/05/25 04/06/25 04/06/25
21:59 00:34 04:43
Troponin I 2.730 H* 2.530 H* 1.650 H* D
Vital Signs and I&O:
Vital Signs
Temp Pulse Resp BP Pulse Ox
99.0 F 90 22 122/68 98
04/07/25 08:06 04/07/25 08:00 04/07/25 08:00 04/07/25 08:00 04/07/25 08:00
Vital Signs
Temp Pulse Resp BP Pulse Ox
99.0 F 90 22 122/68 98
04/07/25 08:06 04/07/25 08:00 04/07/25 08:00 04/07/25 08:00 04/07/25 08:00
Intake & Output
04/05/25 04/06/25 04/07/25 04/08/25
06:59 06:59 06:59 06:59
Intake Total 780 / 860 2830 / 2910 160 / 160
Output Total 1000 / 1000
Balance 780 / 860 1830 / 1910 160 / 160
Physical Exam
Physical Exam
GENERAL: no acute distress, on O2 nasal cannula support
EYE: sclera anicteric
NECK: Supple, no JVD, no carotid bruit appreciated
ENT: normal nose, moist mucosal membranes
CARDIAC: Regular rate and rhythm, +S1/S2, no murmur, rubs, or gallops
CHEST/PULMONARY: Normal effort, clear breath sounds
ABDOMEN: Soft, without focal tenderness or distention
NEUROLOGICAL: Alert and oriented x3
SKIN: Warm and dry, no rash
PSYCH: Normal and appropriate interaction.
Telemetry sinus rhythm PVCs; no demonstrated AF/AFL or pauses
EKG 04/05/2025, 04/06/2025 demonstrates sinus rhythm diffuse T wave inversion with nonspecific ST abnormality
--- NOTE | 2025-04-07 08:54 | W.PN.HOSP.TC ---
Today's Communication/Plan
-
Heparin Drip DVT/PE protocol to start tonight at 22:41
Monitor in IMU/ICU
See plan
Assessment / Plan
Assessment / Plan
Physical Exam
General: Well Developed, Well Nourished and No Apparent Distress
HEENT: Normocephalic, Moist mucous membranes and Atraumatic
Respiratory: Clear
Cardiac: S1/S2 and Regular Rhythm
GI: Soft, Non Tender, Non Distended and Normal Bowel Sounds
Musculoskeletal: No Cyanosis and No Edema
Skin: Warm. Dry.
Neuro: AAOx3. Cranial Nerves 2 through 12 intact. Strength and sensation grossly intact bilaterally.
Assessment/Plan
64 y/o female with history of anxiety brought to the ER with sudden onset facial droop and expressive aphasia noticed by daughter around 9:30 PM on 04/07/25 (was last seen normal at 8:45 pm). as per As per patient's daughter, patient was nauseous
and vomited a couple times. Patient denied chest pain. She has felt depressed with recent loss of her father 2 days ago.

Triage VS: T 98.7, P 80, RR 16, BP 99/41, SpO2 99%
On exam patient is awake, alert. severe expressive aphasia, left facial droop, moves all 4 extremities and easily follows commands.
LABS: WBC 11.6, Hg 12.9, PLT 230, INR 1.09, Na 135, K+ 4.0, Cl 101, CO2 26, BUN 21, Cr 0.8, Glucose 123, T. Bili 0.8, AST 260, ALT 256, Alk Phos 104, Trop 2.730
EKG with TWI lateral leads
HEAD CT
IMPRESSION:
No acute intracranial hemorrhage.
Questionable subtle loss of definition inferior left frontal lobe versus artifact.
BRAIN CT
Abnormality in the left frontal operculum.
CTA
IMPRESSION:
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

Acute CVA
M2 segment thrombus
-s/p TNK at 22:41. Case discussed between ER physician Dr. Mcgowan and [facility]. Per [facility], IAT not indicated for M2 occlusion
*per [facility], with patient's low NIHSS score and M2 occulsion IAT not indicated
-Monitor in ICU/IMU
-q1 hour neuro checks
-MRI 24 hours post tPA without hemorrhage.
-atorvastatin 40mg qhs
-PT/OT/ST
-Neurology consult
-Manager Cancer consult
Elevated Troponin
TWI lateral leads
-patient denies chest pain
-echocardiogram�EF 40% with LV thrombus. Suspected Takotsubo cardiomyopathy in the setting of recent stress from her father's passing
-s/p TNk as above
-trend Troponin
-Patient okay for IV heparin 48 hours AFTER TNK -- so 22:41 this evening
-Cardiac catheterization on 04/08/25.
-Cardiology consult
Cardiomyopathy, new, unclear etiology EF 40%
LV thrombus
-Start Heparin Drip (DVT/PE protocol) tonight at 22:41 (48 hours after TNK)
Nausea/vomiting
Transaminitis
-US: Gallbladder wall thickening of unknown etiology.
-Follow hep serologies
Anxiety
-CORRUGATOR Citalopram
Urinary Retention
-UA and bladder scans protocol
Abdominal Tenderness
-Abdominal X-ray with nonobstructive bowel gas pattern and mild colonic stool burden.
-Bowel regimen
Code Status: Full Code
Stroke s/p TNK, LV thrombus and low cardiac ejection fraction is a high risk encounter.
Anticipated Discharge: > 48 hours
Subjective/Interval History
-
Date of Service: April 07, 2025
Patient was seen and examined. She denied any new symptoms or complaints.
Objective Data
-
Labs:
Laboratory Results
04/07/25
04:23
WBC 8.7
Hgb 10.7 L
Hct 31.9 L
Plt Count 158
Sodium 135
Potassium 4.1
Chloride 106
Carbon Dioxide 25
BUN 11
Creatinine 0.5 L
Glucose 112 H
Calcium 8.0 L D
Vital Signs:
Vital Signs
Temp Pulse Resp BP Pulse Ox
99.0 F 90 22 122/68 98
04/07/25 08:06 04/07/25 08:00 04/07/25 08:00 04/07/25 08:00 04/07/25 08:00
I&O
04/06/25 04/07/25 04/08/25
06:59 06:59 06:59
Intake Total 780 / 860 2830 / 2910 160 / 160
Output Total 1000 / 1000
Balance 780 / 860 1830 / 1910 160 / 160
[2025-04-07 11:00] LABS: Urine Character Clear (Clear)
--- NOTE | 2025-04-07 11:58 | W.PN.NEURO.1 ---
Today's Communication / Plan
-
started ASA 81 and DVT ppx
anticoagulate tonight ~48 Hrs after TNK ~2241 pm
anticipate cath early next week and she may need more blood thinners after the procedure
Neuro Assessment/Plan
Assessment
CTA head/neck 04/05 imgs rev'd, Left M2 LVO
CT perfusion 04/05 imgs rev'd with patient, core 11 cc, core+penumbra 22 cc
MRI imgs rev'd with patient showing stroke on DWI and a small amount of microhemorrhage on FFE
ECHO showing LV thrombus
Acute embolic stroke left MCA M2 segment occlusion, s/p TNK 04/05 at 22:41 with a small amount of microhemorrhage
can start ASA 81 and DVT ppx heparin
tonight 48 hrs after TNK can start anticoagulate heparin gtt or NOAC
done with permissive HTN.
weighing risks and benefits of when to AC, risk of hematoma expansion is highest in first 24 hrs, and then falls rapidly, while patient's risk of emboli from LV thrombus remains high and cumulative; the LVT seen on ECHO would be old and well
organized as it did not dissolve to TNK, and will probably be there for some time after AC started. per cardiology notes cath next week, I anticipate she could need more blood thinners depending on what is done during the procedure
Subjective/Objective
Subjective Data
Date of Service: April 07, 2025
patient reports speaking clearly, still some subtle expressive aphasia. denies acute complaints
Objective Data
Vital Signs
Temp Pulse Resp BP Pulse Ox
36.4 C 91 24 116/54 92
04/07/25 11:51 04/07/25 10:30 04/07/25 10:30 04/07/25 10:00 04/07/25 10:30
Lab Results
04/07/25 04:23
04/07/25 04:23
PT 14.7 Sec (11.4-14.6) H 04/06/25 04:45
INR 1.12 04/06/25 04:45
APTT 25.5 Sec (23.4-35.0) 04/06/25 04:45
Sodium 135 mmol/L (135-145) 04/07/25 04:23
Potassium 4.1 mmol/L (3.5-5.1) 04/07/25 04:23
BUN 11 mg/dl (7-17) 04/07/25 04:23
Glucose 112 mg/dl (70-99) H 04/07/25 04:23
Calcium 8.0 mg/dl (8.4-10.2) L D 04/07/25 04:23
LDL Cholesterol, Calc 75 mg/dl 04/06/25 04:44
Vitamin B12 838 pg/ml (239-931) 04/06/25 04:44
Patient Allergies
No Known Allergies Allergy (Unverified 04/05/25 22:10)
Physical Exam
-
AAOx3, speech clear, language intact
VFF, EOMI, face symmetric
full strength
[2025-04-07 12:17] LABS: Urine Squamous Cell 0-2 /LPF (Few); Urine White Cell 0-2 /HPF (0-5)
[2025-04-07] MEDS: ASPIR LOW (ENTERIC COATED) 81 MG PO (12:29)
[2025-04-07] MEDS: MIRALAX 17 GRAMS PO (13:57)
[2025-04-07] MEDS: LIPITOR 40 MG PO (17:55)
--- NOTE | 2025-04-07 20:46 | PTCARENOTE ---
Received pt resting in bed, AAOx3. NIH = 1 for mild expressive aphasia. KERR, no weakness noted. Neuro checks as ordered. SR on tele , HR 90s. BP 120s/70-90s. No edema. + pulses. On 2L NC, spo2 97%. Lungs CTA. + bowel sounds. OK appetite on low
cholesterol diet. Has required straight caths- will monitor bladder scans. LR @ 80ml/hr infusing as ordered. Call mcclendon in reach.
[2025-04-07] MEDS: CELEXA 20 MG PO (22:43)
[2025-04-07] MEDS: HEPARIN 5200 UNITS IV (22:43)
[2025-04-07] MEDS: HEPARIN 25000 UNITS/250 ML IV (22:44)
--- NOTE | 2025-04-07 23:30 | PTCARENOTE ---
Heparin gtt started per orders.
No urine output. Bladder scan = 486ml. Attempted to use bedpan without success. Straight cath'd for 500ml.
Bathed with CHG
[2025-04-08] VITALS (12 sets, daily range): BP systolic 110–134; BP diastolic 63–94; BMI 24.7
[2025-04-08 04:48] LABS: Hematocrit 31.3 % (37.0-47.0); Hemoglobin 10.7 g/dL (12.0-16.0); Mean Corp Hgb Conc. 34.2 g/dL (33.0-37.0); Mean Corpuscular Volume 92.3 fL (81.0-99.0); Platelet Count 175 10^3/uL (130-400); Red Cell Dist. Width 12.7 % (11.5-14.5)
[2025-04-08 05:19] LABS: APTT > 200 Sec (23.4-35.0)
--- NOTE | 2025-04-08 05:24 | PTCARENOTE ---
PTT >200. MARIAN Yu notified. Per protocol, hold heparin gtt x2 hours then decrease gtt by 300units/hr. Will pass on to dayshift.
Pt. with no changes overnight.
[2025-04-08 05:56] LABS: ALT (SGPT) 273 U/L (0-35); AST (SGOT) 187 U/L (14-36); Albumin 3.6 g/dl (3.5-5.0); Alkaline Phosphatase 159 U/L (38-126); Blood Urea Nitrogen 11 mg/dl (7-17); Calcium 8.6 mg/dl (8.4-10.2); Carbon Dioxide 24 mmol/L (22-30); Chloride 104 mmol/L (98-107); Estimated Creatinine Clearance 83 ml/min; Glucose 117 mg/dl (70-99); Potassium 3.8 mmol/L (3.5-5.1); Sodium 136 mmol/L (135-145); Total Protein 6.0 g/dl (6.3-8.2); eGFR > 60.00
--- NOTE | 2025-04-08 07:30 | PTCARENOTE ---
Received patient A&Ox4, NIH 1 with mild aphasia, on 2L NC, NSR, BP WNL, continue Heparin drip protocol, poor appetite, feeling constipated, on straight cath algorithm for urinary retention noted since 04/06.
--- NOTE | 2025-04-08 08:03 | W.PN.HOSP.TC ---
Today's Communication/Plan
-
N.P.O. after midnight; left heart catheterization tentatively 04/09/2025
Continue Heparin Drip
Assessment / Plan
Assessment / Plan
Physical Exam
General: Well Developed, Well Nourished and No Apparent Distress
HEENT: Normocephalic, Moist mucous membranes and Atraumatic
Respiratory: Clear
Cardiac: S1/S2 and Regular Rhythm
GI: Soft, Non Tender, Non Distended and Normal Bowel Sounds
Musculoskeletal: No Cyanosis and No Edema
Skin: Warm. Dry.
Neuro: AAOx3. Cranial Nerves 2 through 12 intact. Strength and sensation grossly intact bilaterally.
Assessment/Plan
64 y/o female with history of anxiety brought to the ER with sudden onset facial droop and expressive aphasia noticed by daughter around 9:30 PM on 04/07/25 (was last seen normal at 8:45 pm). as per As per patient's daughter, patient was nauseous
and vomited a couple times. Patient denied chest pain. She has felt depressed with recent loss of her father 2 days ago.

Triage VS: T 98.7, P 80, RR 16, BP 99/41, SpO2 99%
On exam patient is awake, alert. severe expressive aphasia, left facial droop, moves all 4 extremities and easily follows commands.
LABS: WBC 11.6, Hg 12.9, PLT 230, INR 1.09, Na 135, K+ 4.0, Cl 101, CO2 26, BUN 21, Cr 0.8, Glucose 123, T. Bili 0.8, AST 260, ALT 256, Alk Phos 104, Trop 2.730
EKG with TWI lateral leads
HEAD CT
IMPRESSION:
No acute intracranial hemorrhage.
Questionable subtle loss of definition inferior left frontal lobe versus artifact.
BRAIN CT
Abnormality in the left frontal operculum.
CTA
IMPRESSION:
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

Acute CVA
M2 segment thrombus
-s/p TNK at 22:41. Case discussed between ER physician Dr. Mcgowan and [facility]. Per [facility], IAT not indicated for M2 occlusion
*per [facility], with patient's low NIHSS score and M2 occulsion IAT not indicated
-Monitor in ICU/IMU
-q1 hour neuro checks
-MRI 24 hours post tPA without hemorrhage.
-atorvastatin 40mg qhs
-PT/OT/ST
-Neurology consult
-Fee Clerk consult
Elevated Troponin
TWI lateral leads
NSTEMI
-patient denied chest pain
-echocardiogram�EF 40% with LV thrombus. Suspected Takotsubo cardiomyopathy in the setting of recent stress from her father's passing
-s/p TNk as above
-trend Troponin
-IV heparin drip (DVT/PE protocol) started 48 hours AFTER TNK ~22:41 on 04/07/25
-N.P.O. after midnight; left heart catheterization tentatively 04/09/2025
-Cardiology consult
Cardiomyopathy, new, unclear etiology EF 40%
LV thrombus
-Continue Heparin Drip (DVT/PE protocol)
-Cardiology recommended bedrest
Nausea/vomiting
Transaminitis
-US: Gallbladder wall thickening of unknown etiology.
-Follow hep serologies
Anxiety
-ELECTRICAL TEST TECHNICIAN Citalopram
Urinary Retention
-UA and bladder scans protocol
Abdominal Tenderness
-Abdominal X-ray with nonobstructive bowel gas pattern and mild colonic stool burden.
-Bowel regimen
Code Status: Full Code
Stroke s/p TNK, LV thrombus, Heparin Drip and low cardiac ejection fraction is a high risk encounter.
Anticipated Discharge: > 48 hours
Subjective/Interval History
-
Date of Service: April 08, 2025
Patient was seen and examined. She denied any new symptoms or complaints. Tolerating the Heparin Drip well with no bleeding.
Objective Data
-
Labs:
Laboratory Results
04/07/25 04/08/25 04/08/25
22:41 04:31 04:32
WBC Cancelled 9.3
Hgb Cancelled 10.7 L
Hct Cancelled 31.3 L
Plt Count Cancelled 175
APTT Cancelled > 200 H*
Sodium 136
Potassium 3.8
Chloride 104
Carbon Dioxide 24
BUN 11
Creatinine 0.5 L
Glucose 117 H
Calcium 8.6
Total Bilirubin 1.3
AST 187 H
ALT 273 H
Alkaline Phosphatase 159 H
04/08/25
13:20
WBC
Hgb
Hct
Plt Count
APTT Pending
Sodium
Potassium
Chloride
Carbon Dioxide
BUN
Creatinine
Glucose
Calcium
Total Bilirubin
AST
ALT
Alkaline Phosphatase
Vital Signs:
Vital Signs
Temp Pulse Resp BP Pulse Ox
99.4 F 98 21 126/70 97
04/08/25 04:25 04/08/25 06:00 04/08/25 06:00 04/08/25 06:00 08/03/25 06:00
I&O
04/07/25 04/08/25 04/09/25
06:59 06:59 06:59
Intake Total 2830 / 2910 2232 / 2312 80 / 80
Output Total 1000 / 1000 920 / 920
Balance 1829 1312 / 1392 80 / 80
[2025-04-08] MEDS: MIRALAX 17 GRAMS PO (09:19)
[2025-04-08] MEDS: THIAMINE INJECTION 100 MG IV (09:19)
[2025-04-08] MEDS: ASPIR LOW (ENTERIC COATED) 81 MG PO (09:19)
[2025-04-08] MEDS: LR 1000 IV ×2 (09:21→22:04)
--- NOTE | 2025-04-08 09:46 | W.PN.CARDCBS ---
Today's Communication / Plan
-
IV heparin for LV thrombus, NSTEMI
N.p.o. after midnight, left heart catheterization tentatively 04/09/2025
Impression / Plan
-
Primary Preanalytics Team Lead: none prior to admission
Assessment:
Presentation with facial droop, change in speech
Acute M2 segment CVA s/p TNK 04/05/25
Cardiomyopathy, new, unclear etiology EF 40%
LV thrombus
Elevated troponin
N/V
Transaminitis
Anxiety
History of Thao's Palsy
ECHO 04/06/25: Normal LV size, wall thickness, EF 40% with mid to distal/apical akinesis, apical thrombus 1.8 x 1.2 cm, normal RV size and function, moderate to severe TR PASP 41 mmHg, trivial pericardial effusion
Plan:
- Patient presented with facial droop and change in speech noted by patient's daughter. By CTA was noted to have acute M2 segment occlusion and underwent TNK administration last evening. She improved with this, although remains with some degree of
expressive aphasia per nursing. She was able to answer all questions appropriately on my examination.
- Cardiology consulted as noted to have elevated troponin which peaked at 2.7 on arrival and subsequently trending down as well as EKG with fairly diffuse T wave inversions
- Continue aspirin when ok per neuro post TNK; continue IV heparin for LV thrombus, NSTEMI
� N.p.o. after midnight, left heart catheterization tentatively tomorrow a.m.
- LDL 75. lipitor 40mg QPM started
- Replete K
- BP recommendations per neurology
- follow on tele. in SR.
- d/w nursing
Progress Note - Preanalytics Team Lead
Subjective
Date of Service: April 08, 2025
Patient seen and examined. No acute events overnight. Patient resting comfortably in bed. Patient denies chest pain, shortness of breath, palpitations, weakness.
Objective
Labs:
04/08/25 04:32
04/08/25 04:32
Labs
Hgb 10.7 g/dL (12.0-16.0) L 04/08/25 04:32
Hct 31.3 % (37.0-47.0) L 04/08/25 04:32
Plt Count 175 10^3/uL (130-400) 04/08/25 04:32
PT 14.7 Sec (11.4-14.6) H 04/06/25 04:45
INR 1.12 04/06/25 04:45
APTT > 200 Sec (23.4-35.0) H* 04/08/25 04:31
Sodium 136 mmol/L (135-145) 04/08/25 04:32
Potassium 3.8 mmol/L (3.5-5.1) 04/08/25 04:32
BUN 11 mg/dl (7-17) 04/08/25 04:32
Creatinine 0.5 mg/dL (0.6-1.0) L 04/08/25 04:32
Glucose 117 mg/dl (70-99) H 04/08/25 04:32
Troponins
04/05/25 04/06/25 04/06/25
21:59 00:34 04:43
Troponin I 2.730 H* 2.530 H* 1.650 H* D
Vital Signs and I&O:
Vital Signs
Temp Pulse Resp BP Pulse Ox
99.1 F 98 21 126/70 97
04/08/25 08:00 04/08/25 06:00 04/08/25 06:00 04/08/25 06:00 04/08/25 06:00
Vital Signs
Temp Pulse Resp BP Pulse Ox
99.1 F 98 21 126/70 97
04/08/25 08:00 04/08/25 06:00 04/08/25 06:00 04/08/25 06:00 04/08/25 06:00
Intake & Output
04/06/25 04/07/25 04/08/25 04/09/25
06:59 06:59 06:59 06:59
Intake Total 780 / 860 2830 / 2910 2232 / 2312 80 / 80
Output Total 1000 / 1000 920 / 920
Balance 780 / 860 1830 / 1910 1312 / 1392 80 / 80
Physical Exam
Physical Exam
GENERAL: no acute distress, on O2 nasal cannula support
EYE: sclera anicteric
NECK: Supple, no JVD, no carotid bruit appreciated
ENT: normal nose, moist mucosal membranes
CARDIAC: Regular rate and rhythm, +S1/S2, no murmur, rubs, or gallops
CHEST/PULMONARY: Normal effort, clear breath sounds
ABDOMEN: Soft, without focal tenderness or distention
NEUROLOGICAL: Alert and oriented x3
SKIN: Warm and dry, no rash
PSYCH: Normal and appropriate interaction.
Telemetry sinus rhythm PVCs; no demonstrated AF/AFL or pauses
EKG 04/05/2025, 04/06/2025 demonstrates sinus rhythm diffuse T wave inversion with nonspecific ST abnormality
--- NOTE | 2025-04-08 12:30 | PTCARENOTE ---
Reassessed the patient, still retaining urine, notified Dr. Roman and received order to place a Alejandra for acute urinary retention. UOP 450mL post Alejandra insertion.
[2025-04-08 13:54] LABS: APTT 55.5 Sec (23.4-35.0)
--- NOTE | 2025-04-08 15:00 | PTCARENOTE ---
Spoke to the in house pharmacist regarding if we need to give bolus for subtherapeutic PTT 55.5 and how we can obtain a separate bolus order. Pharmacist explained that we don't need to give bolus if patient is on Heparin drip for LV thrombus
(cardiac issue). This RN will increase the rate per protocol.
--- NOTE | 2025-04-08 17:10 | PTCARENOTE ---
Per Dr. Greenberg (CARD), patient can get up w/ assistance while on Heparin drip.
[2025-04-08] MEDS: LIPITOR 40 MG PO (17:27)
--- NOTE | 2025-04-08 19:09 | PTCARENOTE ---
Patient arrived to unit via bed and accompanied by daughter. Pt is alert and oriented but has some word finding difficulty. NIH 1.
--- NOTE | 2025-04-08 20:00 | PTCARENOTE ---
bedside NIH preformed with adelfo MACKEY. NIH scoring a 1. presenting with mild aphasia when searching for words. AAOx3. pt on 1L o2, denies SOB, satting 96%. Alejandra present draining aracelis urine. Heparin gtt running at 1200 units/hr, 12/ml hr. Call
light in reach. safe environment maintained.
[2025-04-08] MEDS: HEPARIN 25000 UNITS/250 ML IV (21:21)
[2025-04-08 23:06] LABS: APTT 95.1 Sec (23.4-35.0)
[2025-04-08] MEDS: CELEXA 20 MG PO (23:07)
[2025-04-09] VITALS (24 sets, daily range): BP systolic 106–147; BP diastolic 59–95; BMI 25.8
[2025-04-09 05:28] LABS: APTT 91.4 Sec (23.4-35.0)
[2025-04-09 05:33] LABS: Hematocrit 30.8 % (37.0-47.0); Hemoglobin 10.5 g/dL (12.0-16.0); Mean Corp Hgb Conc. 34.1 g/dL (33.0-37.0); Mean Corpuscular Volume 91.9 fL (81.0-99.0); Platelet Count 185 10^3/uL (130-400); Red Cell Dist. Width 12.8 % (11.5-14.5)
[2025-04-09 05:38] LABS: ALT (SGPT) 209 U/L (0-35); AST (SGOT) 91 U/L (14-36); Albumin 3.4 g/dl (3.5-5.0); Alkaline Phosphatase 152 U/L (38-126); Blood Urea Nitrogen 11 mg/dl (7-17); Calcium 8.4 mg/dl (8.4-10.2); Carbon Dioxide 23 mmol/L (22-30); Chloride 104 mmol/L (98-107); Estimated Creatinine Clearance 83 ml/min; Glucose 117 mg/dl (70-99); Potassium 3.9 mmol/L (3.5-5.1); Sodium 133 mmol/L (135-145); Total Protein 6.0 g/dl (6.3-8.2); eGFR > 60.00
--- NOTE | 2025-04-09 06:56 | W.PN.UPDATE ---
Update Note
Progress Note Update
RN reported patient had a 'sneeze ' and noted a small amount of blood clot from the nose. on Heparin drip.
not profusely bleeding. stable VS. will order ocean spay for nasal dryness and congestion.
[2025-04-09] MEDS: ASPIR LOW (ENTERIC COATED) 81 MG PO (08:14)
[2025-04-09] MEDS: THIAMINE INJECTION 100 MG IV (08:14)
--- NOTE | 2025-04-09 08:55 | W.PN.HOSP.TC ---
Today's Communication/Plan
-
Cardiac cath without obstructive disease
Start Coumadin and continue Heparin Drip bridge
INR monitoring until it becomes therapeutic
Assessment / Plan
Assessment / Plan
Physical Exam
General: Well Developed, Well Nourished and No Apparent Distress
HEENT: Normocephalic, Moist mucous membranes and Atraumatic
Respiratory: Clear
Cardiac: S1/S2 and Regular Rhythm
GI: Soft, Non Tender, Non Distended and Normal Bowel Sounds
Musculoskeletal: No Cyanosis and No Edema
Skin: Warm. Dry.
Neuro: AAOx3. Cranial Nerves 2 through 12 intact. Strength and sensation grossly intact bilaterally.
Assessment/Plan
64 y/o female with history of anxiety brought to the ER with sudden onset facial droop and expressive aphasia noticed by daughter around 9:30 PM on 04/07/25 (was last seen normal at 8:45 pm). as per As per patient's daughter, patient was nauseous
and vomited a couple times. Patient denied chest pain. She has felt depressed with recent loss of her father 2 days ago.

Triage VS: T 98.7, P 80, RR 16, BP 99/41, SpO2 99%
On exam patient is awake, alert. severe expressive aphasia, left facial droop, moves all 4 extremities and easily follows commands.
LABS: WBC 11.6, Hg 12.9, PLT 230, INR 1.09, Na 135, K+ 4.0, Cl 101, CO2 26, BUN 21, Cr 0.8, Glucose 123, T. Bili 0.8, AST 260, ALT 256, Alk Phos 104, Trop 2.730
EKG with TWI lateral leads
HEAD CT
IMPRESSION:
No acute intracranial hemorrhage.
Questionable subtle loss of definition inferior left frontal lobe versus artifact.
BRAIN CT
Abnormality in the left frontal operculum.
CTA
IMPRESSION:
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

Acute CVA
M2 segment thrombus
-s/p TNK at 22:41 on 04/05/25. Case discussed between ER physician Dr. Mcgowan and [facility]. Per [facility], IAT not indicated for M2 occlusion
*per [facility], with patient's low NIHSS score and M2 occulsion IAT not indicated
-Monitor in ICU/IMU
-Neurochecks
-MRI 24 hours post tPA without hemorrhage.
-atorvastatin 40mg qhs
-PT/OT/ST
-Neurology consult
-Specialist Physician consult
Elevated Troponin
TWI lateral leads
NSTEMI
-patient denied chest pain
-echocardiogram�EF 40% with LV thrombus. Suspected Takotsubo cardiomyopathy in the setting of recent stress from her father's passing
-s/p TNk as above
-trend Troponin
-IV heparin drip (DVT/PE protocol) started 48 hours AFTER TNK ~22:41 on 04/07/25
-Left heart catheterization 04/09/25: no obstructive CAD -- it's likely Takatsubo Cardiomyopathy based on patient's history
-Cardiology consult
Cardiomyopathy, new, unclear etiology EF 40%
LV thrombus
-Coumadin Started.
-Continue Heparin Drip (DVT/PE protocol) bridge while monitoring INR until therapeutic INR.
-Daily INR monitoring
-Cardiology appreciated
SOB
Hypoxia
-Likely from lying in bed/prolonged bedrest andCHF
-Continue incentive spirometer
11/13 epigastric abdominal tenderness (only on palpation)
-Famotidine, which she also uses at home sometimes
Acute on Chronic Epistaxis (noted overnight 04/08/25 to 04/09/25)
-Was not profuse. Benefits of continuing anticoagulation are greater than risks.
-Add moisture with oxygen
Constipation
-Added Senokot-S on 04/09/25 to Miralax
Nausea/vomiting
Transaminitis
-US: Gallbladder wall thickening of unknown etiology.
-Follow hep serologies
Anxiety
-MINERAL TECHNOLOGIST Citalopram
Urinary Retention
-UA and bladder scans protocol
Abdominal Tenderness
-Abdominal X-ray with nonobstructive bowel gas pattern and mild colonic stool burden.
-Bowel regimen
Code Status: Full Code
LV thrombus, Heparin Drip, Coumadin and low cardiac ejection fraction is a high risk encounter.
Anticipated Discharge: > 48 hours
Subjective/Interval History
-
Date of Service: April 09, 2025
Patient was seen and examined. She reported she had an episode of epistaxis overnight, which she has had in the past. No other new significant complaints.
Objective Data
-
Labs:
Laboratory Results
04/08/25 04/09/25
22:41 04:54
WBC 8.1
Hgb 10.5 L
Hct 30.8 L
Plt Count 185
APTT 95.1 H 91.4 H
Sodium 133 L
Potassium 3.9
Chloride 104
Carbon Dioxide 23
BUN 11
Creatinine 0.4 L
Glucose 117 H
Calcium 8.4
Total Bilirubin 1.1
AST 91 H
ALT 209 H
Alkaline Phosphatase 152 H
Vital Signs:
Vital Signs
Temp Pulse Resp BP Pulse Ox
98.4 F 99 23 122/83 96
04/09/25 07:10 04/09/25 05:00 04/09/25 05:00 04/09/25 04:00 04/09/25 03:00
I&O
04/08/25 04/09/25 04/10/25
06:59 06:59 06:59
Intake Total 2232 / 2312 1950
Output Total 920 / 920 825 / 825
Balance 1312 / 1392 1126 / 1126
[2025-04-09] MEDS: LR 1000 IV (10:09)
--- NOTE | 2025-04-09 11:00 | PTCARENOTE ---
Patient AAOx3, NIH 1 for mild aphasia. Unable to wean off of 1L NC, sats drop to 88% on RA. IS given to and patient educated on use. Patient reports difficulty taking deep breaths, MD notified, no other respiratory complaints. VSS, NSR. NPO for
heart cath today. Heparin infusing per protocol. Patient c/o constipation, asked to take miralax after procedure. Alejandra patent and draining yellow urine. Daughter visiting at bedside. Continuing to closely monitor.
--- NOTE | 2025-04-09 13:53 | ITS.CL.CATH ---
General Foundry Worker - Catheterization
Cardiac Catheterization
Procedure Report:
LEFT HEART CATHETERIZATION
Date of Procedure: April 09, 2025
Referring: Tracy Ly.
PROCEDURES:
1. Left heart catheterization, coronary angiogram.
2. Moderate sedation.
INDICATION: NSTEMi, Cardiomyopathy
ACCESS: Right radial artery, 6Fr. sheath, under US guidance.
HEMODYNAMICS : (mmHg)
AO (s/d) : 123/84
CORONARY FINDINGS
Dominance: Right
Left Main Trunk (LMT): Large caliber vessel that gives rise to the LAD and LCx branches and is free of angiographic disease.
Left Anterior Descending Artery (LAD): Large caliber vessel that gives off 1 major diagonal branch as it courses along the anterior inter-ventricular groove before wrapping around the cardiac apex. The LAD and its branches are free of angiographic
disease.
Left Circumflex Artery (LCx): Large caliber vessel that gives off 1 major obtuse marginal (OM) branch as it courses along the atrio-ventricular (AV) groove. The LCx and its branches are free of angiographic disease.
Right Coronary Artery (RCA): Large caliber dominant vessel that gives rise to the posterior descending artery (RPDA) and postero-lateral ventricular (RPLV) branches distally. The RCA and its branches are free of angiographic disease.
SEDATION: 27 minutes of procedural sedation was utilized. IV Midazolam and IV Fentanyl were administered. An independent medical examiner was present to assist with and help manage the patient's level of consciousness and physiologic status.
RADIATION SUMMARY: Fluoro Time (min): 2.7, Dose (mGy): 131.4, DAP (Gy.cm2) : 8 point
Closure Device: There were no immediate intra-procedural complications. The sheath was pulled in the landscaping and groundskeeping laborer and a vascular-band applied to the right wrist for radial artery hemostasis using the patent hemostasis technique.
CONCLUSIONS
1. No obstructive coronary artery disease.
RECOMMENDATIONS
1. Wean radial band per protocol. Monitor right hand perfusion and for bleeding from the radial site following removal of the vascular-band following trans-radial access.
2. Continue aggressive medical therapy and risk factor modification for secondary CAD prevention.
3. Based on clinical history with obstructive coronary artery disease excluded, patient probably has stress-induced or Takotsubo cardiomyopathy. Optimization of goal-directed medical therapy for this.
4. Heparin to Coumadin bridge for known left ventricular thrombus with INR goal of 2-3.
5. Eventual referral for outpatient cardiac rehab.
Copy to: Tracy Ly.
Lexus Cordero MD, FACC, [facility]
--- NOTE | 2025-04-09 14:00 | PTCARENOTE ---
Received patient back from laborer plumbing. VSS. 3L NC, sats 97% with pulse ox on right finger. Right radial pressure band inflated, site CDI. Instructed patient on restrictions and plan of care. Pulses intact, patient reports slight loss of sensation to
right hand. Heparin gtt on hold per orders. Patient ordering lunch. Closely monitoring and following post cath guidelines.
--- NOTE | 2025-04-09 15:27 | CM ---
CM reviewed chart- pt for card cath today
PT/OT evals remain pending
CM will continue to follow for dc planning
Discharge Disposition- anticipate home, follow for VN or possible acute/SNF needs
[2025-04-09 16:39] LABS: HCV Quant by NAAT IU/mL Not Detected; HCV Quant by NAAT Interp Not Detected (Not Detected); HCV Quant by NAAT Log IU/mL Not Detected log IU/mL
[2025-04-09] MEDS: MIRALAX PO (17:17)
[2025-04-09] MEDS: COUMADIN 5 MG PO (18:25)
[2025-04-09] MEDS: PEPCID 20 MG PO (18:26)
[2025-04-09] MEDS: LIPITOR 40 MG PO (18:26)
[2025-04-09] MEDS: CELEXA 20 MG PO (20:34)
[2025-04-09] MEDS: SENOKOT-S PO ×2 (20:34→20:40)
[2025-04-10] VITALS (23 sets, daily range): BP systolic 117–146; BP diastolic 54–94; PULSE 92–109; O2SAT 98–99; BMI 25.8
[2025-04-10] MEDS: LR 1000 IV (01:05)
[2025-04-10 02:30] LABS: Hematocrit 32.5 % (37.0-47.0); Hemoglobin 11.3 g/dL (12.0-16.0); Mean Corp Hgb Conc. 34.8 g/dL (33.0-37.0); Mean Corpuscular Volume 89.8 fL (81.0-99.0); Platelet Count 213 10^3/uL (130-400); Red Cell Dist. Width 12.9 % (11.5-14.5)
[2025-04-10 02:36] LABS: INR 1.14; PT 14.9 Sec (11.4-14.6)
[2025-04-10 02:38] LABS: APTT 53.3 Sec (23.4-35.0)
--- NOTE | 2025-04-10 02:40 | PTCARENOTE ---
mcmanus removed d/t catheter not adequately draining cloudy, tea colored, sediment filled urine. Pt requested to keep mcmanus out and do void trial a day early. Patient informed that if she does not void in 6 hours, another mcmanus catheter will have to
be inserted.
[2025-04-10] MEDS: HEPARIN 5200 UNITS IV (02:48)
[2025-04-10] MEDS: HEPARIN 25000 UNITS/250 ML IV (02:49)
[2025-04-10 02:52] LABS: ALT (SGPT) 167 U/L (0-35); AST (SGOT) 59 U/L (14-36); Albumin 3.5 g/dl (3.5-5.0); Alkaline Phosphatase 156 U/L (38-126); Blood Urea Nitrogen 12 mg/dl (7-17); Calcium 8.6 mg/dl (8.4-10.2); Carbon Dioxide 26 mmol/L (22-30); Chloride 101 mmol/L (98-107); Estimated Creatinine Clearance 83 ml/min; Glucose 110 mg/dl (70-99); Magnesium 1.9 mg/dl (1.6-2.3); Potassium 3.8 mmol/L (3.5-5.1); Sodium 134 mmol/L (135-145); Total Protein 6.2 g/dl (6.3-8.2); eGFR > 60.00
--- NOTE | 2025-04-10 07:47 | W.PN.CARDCBS ---
Addendum entered and electronically signed by Mohamud James MD 04/10/25 14:32:
I saw and examined the patient.
The CLINICAL TRAINING COORDINATOR or PA's note was reviewed and I agree with the note.
Comment: General: Well developed, well nourished in NAD.
Neck: Supple, no JVD, HJR, carotids +2 B/L, no bruits bilaterally.
Heart: Non displaced PMI, RRR, no murmurs, No S3, S4, no rubs.
Lungs: Clear to auscultation bilaterally, no wheeze, rhonchi, rubs bilaterally,
normal expiratory phase.
Extremities: No clubbing, cyanosis or edema bilaterally.
Neuro: Grossly nonfocal, awake, alert and oriented x3.
Stable cardiology status. Will continue heparin to Coumadin bridging. Will change heparin to Lovenox.
Original Note:
Today's Communication / Plan
-
add coreg
continue asa, lipitor
IV heparin to coumadin
wean supp O2
ambulate
Impression / Plan
-
Primary Kilnman: none prior to admission
Assessment:
Presentation with facial droop, change in speech
Acute M2 segment CVA s/p TNK 04/05/25
Cardiomyopathy, new, unclear etiology EF 40%
LV thrombus
Elevated troponin
N/V
Transaminitis
Anxiety
History of Thao's Palsy
ECHO 04/06/25: Normal LV size, wall thickness, EF 40% with mid to distal/apical akinesis, apical thrombus 1.8 x 1.2 cm, normal RV size and function, moderate to severe TR PASP 41 mmHg, trivial pericardial effusion
Plan:
- Patient presented with facial droop and change in speech noted by patient's daughter. By CTA was noted to have acute M2 segment occlusion and underwent TNK administration on admission.
- Cardiology consulted as noted to have elevated troponin which peaked at 2.7 on arrival as well as EKG with fairly diffuse T wave inversions
- echo with EF 40% with mid to distal/apical akinesis with apical thrombus, suspected takotsubo in setting of father's recent passing
- cath 04/09 with nonobstructive CAD consistent with takotsubo
- R wrist site c/d/i
- continue asa, statin
- add coreg 3.125mg BID. additional GDMT of CM as able
- remains compensated from volume standpoint
- wean supp O2 as able
- in SR on review of tele
- currently on IV heparin. received dose of coumadin last evening, continue. INR 1.14 on 04/10
- ambulate
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
- she will need repeat echo in several months to reeval EF and resolution of LV thrombus
- d/w nursing
Progress Note - Kilnman
Subjective
Date of Service: April 10, 2025
no complaints this morning
Objective
Labs:
04/10/25 02:08
04/10/25 02:08
Labs
Hgb 11.3 g/dL (12.0-16.0) L 04/10/25 02:08
Hct 32.5 % (37.0-47.0) L 04/10/25 02:08
Plt Count 213 10^3/uL (130-400) 04/10/25 02:08
PT 14.9 Sec (11.4-14.6) H 04/10/25 02:08
INR 1.14 04/10/25 02:08
APTT 53.3 Sec (23.4-35.0) H 04/10/25 02:08
Sodium 134 mmol/L (135-145) L 04/10/25 02:08
Potassium 3.8 mmol/L (3.5-5.1) 04/10/25 02:08
BUN 12 mg/dl (7-17) 04/10/25 02:08
Creatinine 0.4 mg/dL (0.6-1.0) L 04/10/25 02:08
Glucose 110 mg/dl (70-99) H 04/10/25 02:08
Vital Signs and I&O:
Vital Signs
Temp Pulse Resp BP Pulse Ox
98.5 F 87 20 140/83 95
04/10/25 03:14 04/10/25 06:00 04/10/25 06:00 04/10/25 06:00 04/10/25 06:00
Vital Signs
Temp Pulse Resp BP Pulse Ox
98.5 F 87 20 140/83 95
04/10/25 03:14 04/10/25 06:00 04/10/25 06:00 04/10/25 06:00 04/10/25 06:00
Intake & Output
04/07/25 04/08/25 04/09/25 04/10/25
07:59 07:59 07:59 07:59
Intake Total 2480 / 2560 2232 / 2321 1871 / 1871 1100 / 1100
Output Total 1000 / 1000 920 / 920 825 / 825 2275 / 2275
Balance 1480 / 1560 1312 / 1401 1046 / 1046 -1175 / -1175
Physical Exam
Physical Exam
GEN: No distress, awake, alert, oriented x3. on supp O2
HEENT: supple, anicteric, mmm, eomi
LUNGS: CTA B/L, no wheezes/rales
CV: Reg, S1/S2, no murmur
ABD: soft, BS+, NT/ND
EXT: No cyanosis, clubbing, edema
NEURO: Gross non-focal
SKIN: Warm, pink, dry. No rash. R wrist site c/d/i, soft.
[2025-04-10] MEDS: PEPCID 20 MG PO (08:18)
[2025-04-10] MEDS: ASPIR LOW (ENTERIC COATED) 81 MG PO (08:18)
[2025-04-10] MEDS: MIRALAX PO (08:18)
[2025-04-10] MEDS: SENOKOT-S 1 TABLET PO ×2 (08:18→20:59)
[2025-04-10] MEDS: COREG 3.125 MG PO ×2 (08:18→21:00)
[2025-04-10 09:29] LABS: APTT > 200 Sec (23.4-35.0)
--- NOTE | 2025-04-10 10:54 | W.PN.HOSP.TC ---
Today's Communication/Plan
-
Added IV Lasix for acute CHF
Bilateral Lower Lobe airspace consolidation does not seem to be pneumonia given clinical picture, normal WBC, lack of fever and lack of cough
Incentive Spirometer
Heparin Bridge switched to Lovenox Bridge. Continue Coumadin.
Assessment / Plan
Assessment / Plan
Physical Exam
General: Well Developed, Well Nourished and No Apparent Distress
HEENT: Normocephalic, Moist mucous membranes and Atraumatic
Respiratory: Clear
Cardiac: S1/S2 and Regular Rhythm
GI: Soft, Non Tender, Non Distended and Normal Bowel Sounds
Musculoskeletal: No Cyanosis and No Edema
Skin: Warm. Dry.
Neuro: AAOx3. Cranial Nerves 2 through 12 intact. Strength and sensation grossly intact bilaterally.
Assessment/Plan
64 y/o female with history of anxiety brought to the ER with sudden onset facial droop and expressive aphasia noticed by daughter around 9:30 PM on 04/07/25 (was last seen normal at 8:45 pm). as per As per patient's daughter, patient was nauseous
and vomited a couple times. Patient denied chest pain. She has felt depressed with recent loss of her father 2 days ago.

Triage VS: T 98.7, P 80, RR 16, BP 99/41, SpO2 99%
On exam patient is awake, alert. severe expressive aphasia, left facial droop, moves all 4 extremities and easily follows commands.
LABS: WBC 11.6, Hg 12.9, PLT 230, INR 1.09, Na 135, K+ 4.0, Cl 101, CO2 26, BUN 21, Cr 0.8, Glucose 123, T. Bili 0.8, AST 260, ALT 256, Alk Phos 104, Trop 2.730
EKG with TWI lateral leads
HEAD CT
IMPRESSION:
No acute intracranial hemorrhage.
Questionable subtle loss of definition inferior left frontal lobe versus artifact.
BRAIN CT
Abnormality in the left frontal operculum.
CTA
IMPRESSION:
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

Acute CVA
M2 segment thrombus
-s/p TNK at 22:41 on 04/05/25. Case discussed between ER physician Dr. Mcgowan and [facility]. Per [place] [facility], IAT not indicated for M2 occlusion
*per [place] [facility], with patient's low NIHSS score and M2 occulsion IAT not indicated
-Monitor in ICU/IMU
-Neurochecks
-MRI 24 hours post tPA without hemorrhage.
-atorvastatin 40mg qhs
-PT/OT/ST
-Neurology consult
-Reliability Technicians consult
Elevated Troponin
TWI lateral leads
NSTEMI
-patient denied chest pain
-echocardiogram�EF 40% with LV thrombus. Suspected Takotsubo cardiomyopathy in the setting of recent stress from her father's passing
-s/p TNk as above
-trend Troponin
-IV heparin drip (DVT/PE protocol) started 48 hours AFTER TNK ~22:41 on 04/07/25
-Left heart catheterization 04/09/25: no obstructive CAD -- it's likely Takatsubo Cardiomyopathy based on patient's history
-Cardiology consult
Cardiomyopathy, new, unclear etiology EF 40%
LV thrombus
-Coumadin Started. Heparin Bridge transition to Lovenox Bridge on 04/10/25.
-Daily INR monitoring
-Cardiology appreciated
SOB
Hypoxia
Acute HFmrEF
Small to moderate-sized left and small right pleural effusions which appear new from 04/06/2025 (on chest x-ray) -- suspected from acute CHF
LLL consolidation and moderate RLL consolidation -- suspected atelectasis
-Likely from lying in bed/prolonged bedrest and CHF
-proBNP very specific for acute CHF [id number] on 04/10/25
-Suspected also contribution from recent intravenous fluids
-Start IV Lasix 40 mg BID on 04/10/25
-CXR findings of bilateral lower lobe consolidation unlikely to be pneumonia in the absence of cough, fever or leukocytosis
-Continue incentive spirometer
Mild 3/10 epigastric abdominal tenderness (only on palpation)
-Continue Famotidine, which she also uses at home sometimes
-Patient has been having bowel movements per nurse communication on 04/10/25
-Patient's daughter says she thinks patient abdomen is distended as of 04/10/25: re-checked abdominal x-ray given mild tenderness and discomfort -- looks okay -- could just be GERD from epigastric discomfort
Constipation
-Continue Senokot-S and Miralax
-Patient has been having bowel movements per nurse communication on 04/10/25
Acute on Chronic Epistaxis (noted overnight 04/08/25 to 04/09/25)
-Was not profuse. Benefits of continuing anticoagulation are greater than risks.
-Add moisture with oxygen
Nausea/vomiting
Transaminitis
-Transaminases overall trending down -- even while on Atorvastatin
-Could be from Congestion from Cardiomyopathy?
-US: Gallbladder wall thickening of unknown etiology.
-Viral Hepatitis serologies negative
Anxiety
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
Urinary Retention
-UA and bladder scans protocol
DVT Prophylaxis: Coumadin with Lovenox subq bridging
Code Status: Full Code
LV thrombus, Heparin Drip, Coumadin and low cardiac ejection fraction and acute CHF is a high risk encounter.
Anticipated Discharge: > 48 hours
Subjective/Interval History
-
Date of Service: April 10, 2025
Patient was seen and examined. She reported some shortness of breath.
Objective Data
-
Labs:
Laboratory Results
04/10/25 04/10/25
02:08 08:54
WBC 9.4
Hgb 11.3 L
Hct 32.5 L
Plt Count 213
PT 14.9 H
INR 1.14
APTT 53.3 H > 200 H*
Sodium 134 L
Potassium 3.8
Chloride 101
Carbon Dioxide 26
BUN 12
Creatinine 0.4 L
Glucose 110 H
Calcium 8.6
Total Bilirubin 1.1
AST 59 H
ALT 167 H
Alkaline Phosphatase 156 H
Vital Signs:
Vital Signs
Temp Pulse Resp BP Pulse Ox
98.2 F 78 23 127/71 98
04/10/25 07:40 04/10/25 10:00 04/10/25 10:00 04/10/25 09:00 04/10/25 10:00
I&O
04/09/25 04/10/25 04/11/25
06:59 06:59 06:59
Intake Total 1950 1100 / 1100
Output Total 825 / 825 2275 / 2275 200 / 200
Balance 1126 / 1126 -1175 / -1175 -200 / -200
--- NOTE | 2025-04-10 11:40 | PTCARENOTE ---
Heparin gtt d/c per MD orders. Pt educated on plan of care.
--- NOTE | 2025-04-10 12:22 | PTCARENOTE ---
Attempts to wean pt off 1L NC unsuccessful. Pt desatted to high 80's. 1 L placed back and pt recovered to high 90s.
--- NOTE | 2025-04-10 12:43 | PTCARENOTE ---
Notified by Pt's daughter that pt's abdomen appears distended. Pt admits to tenderness on palpation. Dr. Roman notified. Abdomen XR order received. Family updated on plan of care.
[2025-04-10] MEDS: LR IV (14:46)
--- NOTE | 2025-04-10 15:35 | CM ---
CM reviewed chart- ADC tomorrow
PT/OT orders placed and pending
Bedside meeting with pt and dtr
She will dc to dtr's home at [address] [place] [address]
Split level, OSTE basement, 6 steps to main, 6 steps to sleeping/bathing level
Pt is hopeful to attend outpt therapy
If VN, plan for referral to [facility] as pt a is PT in their acute rehab
Pt with insurance change 04/06
New cards sent to admissions
[facility] PPO Policy #[id number]
Pt on 1L, will likely need home O2 eval prior to dc
Discharge Disposition- home, likely with outpt vs VN, watch for O2 needs
--- NOTE | 2025-04-10 15:52 | W.PN.NEURO.1 ---
Today's Communication / Plan
-
Would discontinue aspirin as the use of that medication with anticoagulation is problematic in patients with acute ischemic stroke
Okay for anticoagulation from a stroke perspective
Medical educational materials to be provided
Neuro Assessment/Plan
Assessment
CTA head/neck 04/05, Left M2 LVO
CT perfusion 04/05 with patient, core 11 cc, core+penumbra 22 cc
MRI imgs showing stroke on DWI and a small amount of microhemorrhage on FFE
ECHO showing LV thrombus
Acute embolic stroke left MCA M2 segment occlusion, s/p TNK 04/05 at 22:41 with a small amount of microhemorrhage
Plan
Would discontinue aspirin as the use of that medication with anticoagulation is problematic in patients with acute ischemic stroke
Okay for anticoagulation from a stroke perspective
Medical educational materials to be provided
Will follow as needed
Subjective/Objective
Subjective Data
Date of Service: April 10, 2025
Objective Data
Vital Signs
Temp Pulse Resp BP Pulse Ox
36.8 C 78 23 127/71 98
04/10/25 15:46 04/10/25 10:00 04/10/25 10:00 04/10/25 09:00 04/10/25 10:00
Lab Results
04/10/25 02:08
04/10/25 02:08
PT 14.9 Sec (11.4-14.6) H 04/10/25 02:08
INR 1.14 04/10/25 02:08
APTT > 200 Sec (23.4-35.0) H* 04/10/25 08:54
Sodium 134 mmol/L (135-145) L 04/10/25 02:08
Potassium 3.8 mmol/L (3.5-5.1) 04/10/25 02:08
BUN 12 mg/dl (7-17) 04/10/25 02:08
Glucose 110 mg/dl (70-99) H 04/10/25 02:08
Calcium 8.6 mg/dl (8.4-10.2) 04/10/25 02:08
Tjy-D-Bhcxqqzwqyh Pept Cancelled 04/10/25 11:06
LDL Cholesterol, Calc 75 mg/dl 04/06/25 04:44
Vitamin B12 838 pg/ml (030-931) 04/06/25 04:44
Patient Allergies
No Known Allergies Allergy (Unverified 04/05/25 22:10)
Data Reviewed
-
MRI Head: Report Reviewed
Labs: Report Reviewed
Reviewed with: Physician and Physician Saddle And Side Wire Stitcher
Old Records: Summarized
--- NOTE | 2025-04-10 15:56 | W.PN.UPDATE ---
Update Note
Progress Note Update
Aspirin stopped at the recommendation of Dr. Gallagher via [employer] communication today, cardiology also onboard with stopping Aspirin.
[2025-04-10] MEDS: LASIX 40 MG IV (16:27)
--- NOTE | 2025-04-10 17:54 | PTCARENOTE ---
Pt tolerating RA with sats in the low 90's at this time.
[2025-04-10] MEDS: LIPITOR 40 MG PO (18:13)
[2025-04-10] MEDS: COUMADIN 5 MG PO (18:13)
[2025-04-10] MEDS: LOVENOX 70 MG SC (20:59)
[2025-04-10] MEDS: CELEXA 20 MG PO (21:00)
[2025-04-11] VITALS (17 sets, daily range): BP systolic 103–135; BP diastolic 50–84; PULSE 82; O2SAT 95–99; BMI 25.0
[2025-04-11 06:34] LABS: Hematocrit 31.3 % (37.0-47.0); Hemoglobin 10.6 g/dL (12.0-16.0); Mean Corp Hgb Conc. 33.9 g/dL (33.0-37.0); Mean Corpuscular Volume 91.8 fL (81.0-99.0); Platelet Count 219 10^3/uL (130-400); Red Cell Dist. Width 12.8 % (11.5-14.5)
[2025-04-11 06:37] LABS: INR 1.25; PT 15.9 Sec (11.4-14.6)
[2025-04-11 06:52] LABS: ALT (SGPT) 117 U/L (0-35); AST (SGOT) 36 U/L (14-36); Albumin 3.3 g/dl (3.5-5.0); Alkaline Phosphatase 127 U/L (38-126); Blood Urea Nitrogen 14 mg/dl (7-17); Calcium 8.6 mg/dl (8.4-10.2); Carbon Dioxide 30 mmol/L (22-30); Chloride 100 mmol/L (98-107); Estimated Creatinine Clearance 83 ml/min; Glucose 105 mg/dl (70-99); Magnesium 1.9 mg/dl (1.6-2.3); Potassium 3.0 mmol/L (3.5-5.1); Sodium 136 mmol/L (135-145); Total Protein 5.9 g/dl (6.3-8.2); eGFR > 60.00
--- NOTE | 2025-04-11 07:00 | PTCARENOTE ---
Cannot verify VS captured from prior shift.
[2025-04-11] MEDS: LASIX 40 MG IV ×2 (08:08→17:35)
[2025-04-11] MEDS: PEPCID 20 MG PO (08:09)
[2025-04-11] MEDS: LOVENOX 70 MG SC ×2 (08:09→19:38)
[2025-04-11] MEDS: KCL 40 MEQ PO (08:09)
[2025-04-11] MEDS: SENOKOT-S 1 TABLET PO ×2 (08:09→19:38)
[2025-04-11] MEDS: COREG 3.125 MG PO ×2 (08:09→19:38)
[2025-04-11] MEDS: MIRALAX PO (08:10)
--- NOTE | 2025-04-11 09:34 | W.PN.CARDCBS ---
Addendum entered and electronically signed by Mohamud James MD 04/11/25 10:23:
I saw and examined the patient.
The BALER or PA's note was reviewed and I agree with the note.
Comment: General: Well developed, well nourished in NAD.
Neck: Supple, no JVD, HJR, carotids +2 B/L, no bruits bilaterally.
Heart: Non displaced PMI, RRR, no murmurs, No S3, S4, no rubs.
Lungs: Clear to auscultation bilaterally, no wheeze, rhonchi, rubs bilaterally,
normal expiratory phase.
Extremities: No clubbing, cyanosis or edema bilaterally.
Neuro: Grossly nonfocal, awake, alert and oriented x3.
Will continue IV diuresis. Will increase Coumadin dose. Continue Lovenox. She will need Coumadin for likely at least 3 to 6 months given LV thrombus and neurologic event. She is felt to have Takotsubo cardiomyopathy and hopefully this will
improve. Discussed with primary service
Original Note:
Today's Communication / Plan
-
continue IV diuresis
add lisinopril 2.5mg daily
wean supp O2
ambulate
continue lovenox to coumadin
Impression / Plan
-
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
Assessment:
Presentation with facial droop, change in speech
Acute M2 segment CVA s/p TNK 04/05/25
Takotsubo cardiomyopathy, EF 40%
LV thrombus
Elevated troponin, nonischemic myocardial injury as cath with nonobstructive CAD
N/V
Transaminitis
Anxiety
History of Thao's Palsy
ECHO 04/06/25: Normal LV size, wall thickness, EF 40% with mid to distal/apical akinesis, apical thrombus 1.8 x 1.2 cm, normal RV size and function, moderate to severe TR PASP 41 mmHg, trivial pericardial effusion
Plan:
- Patient presented with facial droop and change in speech noted by patient's daughter. By CTA was noted to have acute M2 segment occlusion and underwent TNK administration on admission 04/05/25.
- Cardiology consulted as noted to have elevated troponin which peaked at 2.7 on arrival as well as EKG with fairly diffuse T wave inversions
- echo with EF 40% with mid to distal/apical akinesis with apical thrombus, suspected takotsubo in setting of father's recent passing
- cath 04/09 with nonobstructive CAD consistent with takotsubo
- continue asa, statin, coreg 3.125mg BID. add lisinopril 2.5mg daily today.
- continue IV diuresis with lasix 40mg BID. was not on diuretic prior to admission. reports breathing improved today. LFTs improving
- replete K
- wean supp O2 as able
- in SR on review of tele overnight
- continue lovenox to coumadin. INR 1.25. will give coumadin 7.5mg today and follow. no asa to reduce bleeding risk, d/w neuro 04/10
- ambulate
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
- she will need repeat echo in several months to reeval EF and resolution of LV thrombus
Progress Note - Rubber Printing Machine Operator
Subjective
Date of Service: April 11, 2025
reports breathing improving
Objective
Labs:
04/11/25 06:08
04/11/25 06:08
Labs
Hgb 10.6 g/dL (12.0-16.0) L 04/11/25 06:08
Hct 31.3 % (37.0-47.0) L 04/11/25 06:08
Plt Count 219 10^3/uL (130-400) 04/11/25 06:08
PT 15.9 Sec (11.4-14.6) H 04/11/25 06:08
INR 1.25 04/11/25 06:08
APTT > 200 Sec (23.4-35.0) H* 04/10/25 08:54
Sodium 136 mmol/L (135-145) 04/11/25 06:08
Potassium 3.0 mmol/L (3.5-5.1) L 04/11/25 06:08
BUN 14 mg/dl (7-17) 04/11/25 06:08
Creatinine 0.5 mg/dL (0.6-1.0) L 04/11/25 06:08
Glucose 105 mg/dl (70-99) H 04/11/25 06:08
Vital Signs and I&O:
Vital Signs
Temp Pulse Resp BP Pulse Ox
97.7 F 87 24 135/84 96
04/11/25 08:02 04/11/25 08:13 04/11/25 08:13 04/11/25 08:13 04/11/25 08:20
Vital Signs
Temp Pulse Resp BP Pulse Ox
97.7 F 87 24 135/84 96
04/11/25 08:02 04/11/25 08:13 04/11/25 08:13 04/11/25 08:13 04/11/25 08:20
Intake & Output
04/09/25 04/10/25 04/11/25 04/12/25
07:59 07:59 07:59 07:59
Intake Total 1871 / 1871 1100 / 1100
Output Total 825 / 825 2275 / 2275 500 / 500
Balance 1046 / 1046 -1175 / -1175 -500 / -500
Physical Exam
Physical Exam
GEN: No distress, awake, alert, oriented x3. on supp O2
HEENT: supple, anicteric, mmm, eomi
LUNGS: no audible wheezes
CV: Reg on tele
EXT: No cyanosis, clubbing, edema
NEURO: Gross non-focal
SKIN: Warm, pink, dry. No rash.
[2025-04-11] MEDS: ZESTRIL 2.5 MG PO (11:42)
--- NOTE | 2025-04-11 11:45 | CM ---
CM reviewed chart and met with pt and dtr bedside
VN recs by therapy and anticipate plan for Lovenox injections on dc per cardio
Pt in agreement with plan for VN- referral made to [facility] via [facility] and pending
Plan remains for her to dc to dtr's home in [place]
Will continue to follow for possible home O2 needs
Dtrs' home address
[address] [facility] [address]
Discharge Disposition- home with [facility] with Lovenox injections (referral pending), watch for possible home O2
--- NOTE | 2025-04-11 15:52 | PTCARENOTE ---
Pt's assessment as documented. Aox3. [facility] 1. Sating mid 90's on RA. Ambulating in room. Ringing appropriately, call mcclendon within reach.
--- NOTE | 2025-04-11 16:44 | W.PN.HOSP.TC ---
Today's Communication/Plan
-
Continue on Coumadin bridging
Follow-up INR
transfer to telemetry
Assessment / Plan
Assessment / Plan
Head CT
No acute intracranial hemorrhage. Questionable subtle loss of definition inferior left frontal lobe versus artifact.
Brain CT
Abnormality in the left frontal operculum.
CTA head and neck
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
MR brain
In the anterolateral left frontal lobe, there is a focal wedge-shaped area of abnormal diffusion-weighted and ADC map signal, with increased T2 and FLAIR signal as well. This would be compatible with an area of acute to subacute infarction. Small
foci of decreased signal intensity in this region on susceptibility weighted images, compatible with foci of petechial hemorrhage. Small peripheral focus of acute to subacute infarct in the lateral and inferior right parietal lobe near the
parieto-occipital junction.
Slightly more posteriorly, superiorly, and medially within the right parietal lobe, punctate focus of acute to subacute infarct.

Acute CVA - cardioembolic in nature
M2 segment thrombus
LV thrombus
-s/p TNK on 04/05/25. Case discussed between ER physician Dr. Mcgowan and [facility]. Per [facility], IAT not indicated for M2 occlusion
-patient monitored in ICU post TNK
-MR Brain report as above
-atorvastatin 40mg qhs
-Heart cath stress echocardiogram showing patient having LV thrombus. Started on warfarin, INR remains subtheraputic.
Non ST seg elevation [place]
Tako-tsubo cardiomyopathy
-echocardiogram�EF 40% with LV thrombus.
-IV heparin drip (DVT/PE protocol) started 48 hours AFTER TNK on 04/07/25, now on weight based Lovenox for bridging to warfarin.
-Left heart catheterization 04/09/25: no obstructive CAD -- it's likely Takatsubo Cardiomyopathy based on patient's history
-Cardiology help appreciated
Hypoxic resp insuff
Acute HFmrEF
Small to moderate-sized left and small right pleural effusions
-Likely from lying in bed/prolonged bedrest and CHF
-proBNP very specific for acute CHF 76257 on 04/10/25
-CXR findings of bilateral lower lobe consolidation unlikely to be pneumonia in the absence of cough, fever or leukocytosis
-On IV Lasix 40 mg BID on 04/10/25 currently
-Continue incentive spirometer
Epigastric pain
-Continue Famotidine, which she also uses at home sometimes
-Patient has been having bowel movements per nurse communication on 04/10/25
-Patient's daughter says she thinks patient abdomen is distended as of 04/10/25: re-checked abdominal x-ray given mild tenderness and discomfort -- looks okay -- could just be GERD from epigastric discomfort
Constipation
-Continue Senokot-S and Miralax
-Patient has been having bowel movements per nurse communication on 04/10/25
Acute Epistaxis (noted overnight 04/08/25 to 04/09/25)
-Was not profuse. Benefits of continuing anticoagulation are greater than risks.
-Add moisture with oxygen
Nausea/vomiting
Transaminitis
-Transaminases overall trending down -- even while on Atorvastatin
-Could be from Congestion from Cardiomyopathy?
-US: Gallbladder wall thickening of unknown etiology.
-Viral Hepatitis serologies negative
Anxiety
-DISTRESSER Citalopram
Urinary Retention
-UA and bladder scans protocol
DVT Prophylaxis: Coumadin with Lovenox subq bridging
Code Status: Full Code
Anticipated Discharge: 24 - 48 hours
Subjective/Interval History
-
Date of Service: April 11, 2025
no issues overnight
Objective Data
-
Labs:
Laboratory Results
04/11/25
06:08
WBC 6.9
Hgb 10.6 L
Hct 31.3 L
Plt Count 219
PT 15.9 H
INR 1.25
Sodium 136
Potassium 3.0 L
Chloride 100
Carbon Dioxide 30
BUN 14
Creatinine 0.5 L
Glucose 105 H
Calcium 8.6
Total Bilirubin 0.7
AST 36
ALT 117 H
Alkaline Phosphatase 127 H
Vital Signs:
Vital Signs
Temp Pulse Resp BP Pulse Ox
98.3 F 97 36 123/70 92
04/11/25 15:38 04/11/25 16:00 04/11/25 15:27 04/11/25 15:27 04/11/25 16:37
I&O
04/10/25 04/11/25 04/12/25
06:59 06:59 06:59
Intake Total 1100 / 1100
Output Total 2275 / 2275 500 / 500
Balance -1175 / -1175 -500 / -500
Review of Systems
-
Respiratory: Reports No Symptoms
Cardiac: Reports No Symptoms
Abdomen/GI: Reports No Symptoms
Physical Exam
-
General: No Apparent Distress and Comfortable
HEENT: Negative Oxygen
Respiratory: Clear to Auscultation
Cardiac: Regular Rhythm and S1/S2; Negative Murmur or Rub
Musculoskeletal: No Edema
Neuro: Awake, Alert, Oriented, No Motor Deficits and Nonfocal/Grossly Intact
Psych: Calm
[2025-04-11] MEDS: COUMADIN 7.5 MG PO (17:34)
[2025-04-11] MEDS: LIPITOR 40 MG PO (17:34)
[2025-04-11] MEDS: CELEXA 20 MG PO (19:38)
--- NOTE | 2025-04-11 21:15 | PTCARENOTE ---
Patient aao x3 since start of shift, able to make needs known. NIH 1 r/to aphasia, unable to find word for cactus during testing. Affect friendly, patient ambulatory in room ad nataly, gait steady. NSR on the monitor. Continent of bowel and bladder.
Call mcclendon within reach, will continue to monitor.
--- NOTE | 2025-04-11 22:28 | PTCARENOTE ---
Report called to St[facility] on 4w, patient transferred at this time. Phone call placed to patients daughter per patient request, to notify of change in rooms.
[2025-04-12] VITALS (9 sets, daily range): BP systolic 97–118; BP diastolic 50–71; PULSE 79; BMI 23.9
[2025-04-12 06:26] LABS: Hematocrit 31.6 % (37.0-47.0); Hemoglobin 10.7 g/dL (12.0-16.0); Mean Corp Hgb Conc. 33.9 g/dL (33.0-37.0); Mean Corpuscular Volume 91.1 fL (81.0-99.0); Platelet Count 253 10^3/uL (130-400); Red Cell Dist. Width 12.8 % (11.5-14.5)
[2025-04-12 06:41] LABS: Blood Urea Nitrogen 14 mg/dl (7-17); Calcium 8.0 mg/dl (8.4-10.2); Carbon Dioxide 34 mmol/L (22-30); Chloride 98 mmol/L (98-107); Estimated Creatinine Clearance 83 ml/min; Glucose 103 mg/dl (70-99); Potassium 2.9 mmol/L (3.5-5.1); Sodium 137 mmol/L (135-145); eGFR > 60.00
[2025-04-12 06:43] LABS: INR 1.73; PT 20.7 Sec (11.4-14.6)
[2025-04-12] MEDS: MIRALAX PO (08:30)
[2025-04-12] MEDS: KLOR-CON 40 MEQ PO (08:31)
[2025-04-12] MEDS: PEPCID 20 MG PO (08:32)
[2025-04-12] MEDS: COREG 3.125 MG PO ×2 (08:32→21:00)
[2025-04-12] MEDS: SENOKOT-S 1 TABLET PO (08:32)
[2025-04-12] MEDS: LASIX 40 MG IV (08:34)
[2025-04-12] MEDS: LOVENOX 70 MG SC ×2 (08:35→21:00)
--- NOTE | 2025-04-12 11:57 | W.PN.CARDCBS ---
Addendum entered and electronically signed by Nick Saenz DO 04/12/25 13:12:
I saw and examined the patient.
The Poultry Farm Supervisor's note was reviewed and I agree with the note.
Comment:
Plan:
Transition to Lasix 40 mg daily tomorrow
Continue Coreg and lisinopril with parameters for cardiomyopathy likely Takotsubo cardiomyopathy.
Outpatient follow-up echo
Continue Lovenox to Coumadin bridge INR goal 2-3 for LV thrombus.
Outpt follow up with Dr Greenberg
Discussed with nursing and with daughter at bedside.
Original Note:
Today's Communication / Plan
-
Transition to PO lasix 40mg daily
Continue coreg, lisinopril
INR 1.73, continue lovenox to coumadin bridge
Impression / Plan
-
Primary Client Solutions Manager: none prior to admission
Assessment:
Presentation with facial droop, change in speech
Acute M2 segment CVA s/p TNK 04/05/25
Takotsubo cardiomyopathy, EF 40%
LV thrombus
New start to coumadin
Elevated troponin, nonischemic myocardial injury as cath with nonobstructive CAD
N/V
Transaminitis
Anxiety
History of Thao's Palsy
ECHO 04/06/2025: Normal LV size, wall thickness, EF 40% with mid to distal/apical akinesis, apical thrombus 1.8 x 1.2 cm, normal RV size and function, moderate to severe TR PASP 41 mmHg, trivial pericardial effusion
Plan:
-Presented with facial droop and speech changes noted by patient's daughter. Noted to have acute M2 segment occlusion by CTA and underwent TNK administration 04/05/2025.
-Also noted to have elevated troponin, peaking at 2.7 this admission with abnormal EKG with diffuse T wave inversions.
-Echo 04/06 noted reduced EF of 40% with mid to distal/apical akinesis with apical thrombus, suspected takotsubo in the setting of father's recent passing.
-Nonobstructive CAD by cath 04/09. Continue aspirin, statin.
-Continue medical therapy with lisinopril 2.5mg daily, coreg 3.125 mg BID
-Diuresing with IV lasix 40mg BID. Weight downtrending, down another 6lbs overnight, down to 139 lbs on 04/12.
-Creat stable at 0.6. Will transition to PO lasix 40mg daily.
-Continue lovenox to coumadin bridge. INR up to 1.73. Goal 2-3. Ordered 6mg of coumadin tonight. continue to follow.
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
-K 2.9, repleted by primary service.
-Will need repeat echo in several months to re-eval EF and resolution of LV thrombus
Progress Note - Client Solutions Manager
Subjective
Date of Service: April 12, 2025
Improving
Objective
Labs:
04/12/25 05:32
04/12/25 05:32
Labs
Hgb 10.7 g/dL (12.0-16.0) L 04/12/25 05:32
Hct 31.6 % (37.0-47.0) L 04/12/25 05:32
Plt Count 253 10^3/uL (130-400) 04/12/25 05:32
PT 20.7 Sec (11.4-14.6) H 04/12/25 05:32
INR 1.73 04/12/25 05:32
APTT > 200 Sec (23.4-35.0) H* 04/10/25 08:54
Sodium 137 mmol/L (135-145) 04/12/25 05:32
Potassium 2.9 mmol/L (3.5-5.1) L 04/12/25 05:32
BUN 14 mg/dl (7-17) 04/12/25 05:32
Creatinine 0.6 mg/dL (0.6-1.0) 04/12/25 05:32
Glucose 103 mg/dl (70-99) H 04/12/25 05:32
Vital Signs and I&O:
Vital Signs
Temp Pulse Resp BP Pulse Ox
98.3 F 78 16 97/54 94
04/12/25 11:00 04/12/25 11:00 04/12/25 11:00 04/12/25 11:00 04/12/25 11:00
Vital Signs
Temp Pulse Resp BP Pulse Ox
98.3 F 78 16 97/54 94
04/12/25 11:00 04/12/25 11:00 04/12/25 11:00 04/12/25 11:00 04/12/25 11:00
Intake & Output
04/10/25 04/11/25 04/12/25 04/13/25
06:59 06:59 06:59 06:59
Intake Total 1100 / 1100 60 / 60
Output Total 2275 / 2275 500 / 500
Balance -1175 / -1175 -500 / -500 60 / 60
Physical Exam
Physical Exam
GEN: No distress, awake, alert, oriented x3
HEENT: supple, anicteric, mmmm
LUNGS: no audible wheezes
CV: Reg on tele
EXT: No cyanosis, clubbing, edema
NEURO: Gross non-focal
SKIN: Warm, pink, dry. No rash.
[2025-04-12] MEDS: ZESTRIL PO (12:00)
--- NOTE | 2025-04-12 12:33 | W.PN.HOSP.TC ---
Today's Communication/Plan
-
warfarin 6mg in evening
dose adjustment deferred to cards if warranted
Potassium replacement
f/u INR
Assessment / Plan
Assessment / Plan
Head CT
No acute intracranial hemorrhage. Questionable subtle loss of definition inferior left frontal lobe versus artifact.
Brain CT
Abnormality in the left frontal operculum.
CTA head and neck
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
MR brain
In the anterolateral left frontal lobe, there is a focal wedge-shaped area of abnormal diffusion-weighted and ADC map signal, with increased T2 and FLAIR signal as well. This would be compatible with an area of acute to subacute infarction. Small
foci of decreased signal intensity in this region on susceptibility weighted images, compatible with foci of petechial hemorrhage. Small peripheral focus of acute to subacute infarct in the lateral and inferior right parietal lobe near the
parieto-occipital junction.
Slightly more posteriorly, superiorly, and medially within the right parietal lobe, punctate focus of acute to subacute infarct.

Acute CVA - cardioembolic in nature
M2 segment thrombus
LV thrombus
-s/p TNK on 04/05/25. Case discussed between ER physician Dr. Mcgowan and [facility]. Per [facility], IAT not indicated for M2 occlusion
-patient monitored in ICU post TNK
-MR Brain report as above
-atorvastatin 40mg qhs
-Heart cath stress echocardiogram showing patient having LV thrombus. Started on warfarin, INR remains subtherapeutic.
Non ST seg elevation [place]
Tako-tsubo cardiomyopathy
-echocardiogram�EF 40% with LV thrombus.
-IV heparin drip (DVT/PE protocol) started 48 hours AFTER TNK on 04/07/25, now on weight based Lovenox for bridging to warfarin.
-Left heart catheterization 04/09/25: no obstructive CAD -- it's likely Takatsubo Cardiomyopathy based on patient's history
-Cardiology help appreciated
Hypoxic resp insuff
Acute HFmrEF
Small to moderate-sized left and small right pleural effusions
-Likely from lying in bed/prolonged bedrest and CHF
-proBNP very specific for acute CHF 29814 on 04/10/25
-CXR findings of bilateral lower lobe consolidation unlikely to be pneumonia in the absence of cough, fever or leukocytosis
-On IV Lasix 40 mg BID on 04/10/25 currently
-Continue incentive spirometer
Epigastric pain
-Continue Famotidine, which she also uses at home sometimes
-Patient has been having bowel movements per nurse communication on 04/10/25
-Patient's daughter says she thinks patient abdomen is distended as of 04/10/25: re-checked abdominal x-ray given mild tenderness and discomfort -- looks okay -- could just be GERD from epigastric discomfort
Constipation
-Continue Senokot-S and Miralax
-Patient has been having bowel movements per nurse communication on 04/10/25
Acute Epistaxis (noted overnight 04/08/25 to 04/09/25)
-Was not profuse. Benefits of continuing anticoagulation are greater than risks.
-Add moisture with oxygen
Nausea/vomiting
Transaminitis
-Transaminases overall trending down -- even while on Atorvastatin
-Could be from Congestion from Cardiomyopathy?
-US: Gallbladder wall thickening of unknown etiology.
-Viral Hepatitis serologies negative
Anxiety
-SVP OPERATIONS Citalopram
Urinary Retention
-UA and bladder scans protocol
DVT Prophylaxis: Coumadin with Lovenox subq bridging
Code Status: Full Code
Anticipated Discharge: 24 - 48 hours
Subjective/Interval History
-
Date of Service: April 12, 2025
Denies having any issues overnight
No new problem
Objective Data
-
Labs:
Laboratory Results
04/12/25
05:32
WBC 6.0
Hgb 10.7 L
Hct 31.6 L
Plt Count 253
PT 20.7 H
INR 1.73
Sodium 137
Potassium 2.9 L
Chloride 98
Carbon Dioxide 34 H
BUN 14
Creatinine 0.6
Glucose 103 H
Calcium 8.0 L
Vital Signs:
Vital Signs
Temp Pulse Resp BP Pulse Ox
98.3 F 78 16 97/54 94
04/12/25 11:00 04/12/25 11:00 04/12/25 11:00 04/12/25 11:00 04/12/25 11:00
I&O
04/11/25 04/12/25 04/13/25
06:59 06:59 06:59
Intake Total 60 / 60
Output Total 500 / 500
Balance -500 / -500 60 / 60
Review of Systems
-
Respiratory: Reports No Symptoms
Cardiac: Reports No Symptoms
Abdomen/GI: Reports No Symptoms
Physical Exam
-
General: No Apparent Distress and Comfortable
HEENT: Negative Oxygen
Respiratory: Clear to Auscultation
Cardiac: Regular Rhythm and S1/S2; Negative Murmur or Rub
Musculoskeletal: No Edema
Neuro: Awake, Alert, Oriented, No Motor Deficits and Nonfocal/Grossly Intact
Psych: Calm
[2025-04-12] MEDS: KLOR-CON 20 MEQ PO (13:44)
[2025-04-12] MEDS: ZESTRIL 2.5 MG PO (16:17)
[2025-04-12] MEDS: LIPITOR 40 MG PO (18:08)
[2025-04-12] MEDS: COUMADIN 6 MG PO (18:08)
[2025-04-12] MEDS: CELEXA 20 MG PO (21:01)
[2025-04-12] MEDS: SENOKOT-S PO (21:03)
[2025-04-13 03:13] VITALS: BP 109/59
[2025-04-13 06:00] VITALS: BMI 23.4
[2025-04-13 08:00] VITALS: BP 123/69
[2025-04-13] MEDS: PEPCID 20 MG PO (08:16)
[2025-04-13] MEDS: ZESTRIL 2.5 MG PO (08:16)
[2025-04-13] MEDS: SENOKOT-S 1 TABLET PO (08:17)
[2025-04-13] MEDS: LASIX 40 MG PO (08:17)
[2025-04-13] MEDS: COREG 3.125 MG PO (08:17)
[2025-04-13] MEDS: LOVENOX 70 MG SC (08:18)
[2025-04-13] MEDS: MIRALAX PO (08:19)
--- NOTE | 2025-04-13 09:11 | W.PN.CARDCBS ---
Addendum entered and electronically signed by Viktor Saavedra MD 04/13/25 11:20:
I saw and examined the patient.
The Fountain Roller Assembler's note was reviewed and I agree with the note.
Comment: GEN: No distress, awake, Ox3
HEENT: supple, anicteric, mmm
LUNGS: CTA, no wheezes/rales
CV: Reg, S1/S2, 1/6 syst LSB, no gallop
ABD: soft, BS+, NT/ND
EXT: No edema
NEURO: Gross non-focal
SKIN: No rash
PLan:
Overall doing well. Breathing is stable. Okay for discharge.
Continue Coreg, lisinopril, and Lasix 40 mg daily.
Creatinine normal at 0.5.
INR at 2.3. Continue Coumadin.
Will arrange outpatient follow-up. We do initial visit at [facility] today may need to transfer to [facility] due to insurance.
Original Note:
Today's Communication / Plan
-
Continue PO lasix 40mg daily
Continue coreg, lisinopril
INR 2.31. Continue coumadin.
Follow up arranged.
Impression / Plan
-
Primary Software Quality Specialist: none prior to admission
Assessment:
Presentation with facial droop, change in speech
Acute M2 segment CVA s/p TNK 04/05/25
Takotsubo cardiomyopathy, EF 40%
LV thrombus
New start to coumadin
Elevated troponin, nonischemic myocardial injury as cath with nonobstructive CAD
N/V
Transaminitis
Anxiety
History of Thao's Palsy
ECHO 04/06/2025: Normal LV size, wall thickness, EF 40% with mid to distal/apical akinesis, apical thrombus 1.8 x 1.2 cm, normal RV size and function, moderate to severe TR PASP 41 mmHg, trivial pericardial effusion
Plan:
-Presented with facial droop and speech changes noted by patient's daughter. Noted to have acute M2 segment occlusion by CTA and underwent TNK administration 04/05/2025.
-Troponin peaked at 2.7. Echo 04/06 noted reduced EF of 40%. [facility] 04/09 with nonobstructive CAD. Suspected Takotsubo in the setting of father's recent passing.
-Continue aspirin 81mg daily, Lipitor 40mg daily, new this admission.
-Continue medical therapy for CM with Coreg 3.125mg BID and lisinopril 2.5mg daily.
-Diuresed with IV lasix this admission and now on PO lasix 40mg daily.
-Weight down another 3lbs overnight, down to 136 lbs on 04/13.
-Creat stable at 0.5. K improved to 3.7 following repletion.
-INR 2.31 on 04/13. Goal 2-3. Continue Coumadin.
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
-Will need repeat echo in several months to re-eval EF and resolution of LV thrombus
-Follow up has been arranged.
Progress Note - Software Quality Specialist
Subjective
Date of Service: April 13, 2025
Feeling well. No SOB or edema.
Objective
Labs:
Labs
Hgb 10.7 g/dL (12.0-16.0) L 04/12/25 05:32
Hct 31.6 % (37.0-47.0) L 04/12/25 05:32
Plt Count 253 10^3/uL (130-400) 04/12/25 05:32
PT 20.7 Sec (11.4-14.6) H 04/12/25 05:32
INR 1.73 04/12/25 05:32
APTT > 200 Sec (23.4-35.0) H* 04/10/25 08:54
Sodium 137 mmol/L (135-145) 04/12/25 05:32
Potassium 2.9 mmol/L (3.5-5.1) L 04/12/25 05:32
BUN 14 mg/dl (7-17) 04/12/25 05:32
Creatinine 0.6 mg/dL (0.6-1.0) 04/12/25 05:32
Glucose 103 mg/dl (70-99) H 04/12/25 05:32
Vital Signs and I&O:
Vital Signs
Temp Pulse Resp BP Pulse Ox
98.6 F 82 16 123/69 96
04/13/25 08:00 04/13/25 08:00 04/13/25 08:00 04/13/25 08:00 04/13/25 08:00
Vital Signs
Temp Pulse Resp BP Pulse Ox
98.6 F 82 16 123/69 96
04/13/25 08:00 04/13/25 08:00 04/13/25 08:00 04/13/25 08:00 04/13/25 08:00
Intake & Output
04/11/25 04/12/25 04/13/25 04/14/25
06:59 06:59 06:59 06:59
Intake Total 60 / 60 240 / 240
Output Total 500 / 500 1200 / 1200
Balance -500 / -500 60 / 60 -960 / -960
Physical Exam
Physical Exam
GEN: No distress, awake, alert, oriented x3
HEENT: supple, anicteric, mmmm
LUNGS: no audible wheezes
CV: Reg on tele
EXT: No cyanosis, clubbing, edema
NEURO: Gross non-focal
SKIN: Warm, pink, dry. No rash.
[2025-04-13 09:40] LABS: INR 2.31; PT 25.5 Sec (11.4-14.6)
[2025-04-13 09:44] LABS: Hematocrit 33.7 % (37.0-47.0); Hemoglobin 11.3 g/dL (12.0-16.0); Mean Corp Hgb Conc. 33.5 g/dL (33.0-37.0); Mean Corpuscular Volume 91.3 fL (81.0-99.0); Platelet Count 152 10^3/uL (130-400); Red Cell Dist. Width 13.0 % (11.5-14.5)
[2025-04-13 10:00] LABS: Blood Urea Nitrogen 11 mg/dl (7-17); Calcium 8.2 mg/dl (8.4-10.2); Carbon Dioxide 29 mmol/L (22-30); Chloride 101 mmol/L (98-107); Estimated Creatinine Clearance 83 ml/min; Glucose 96 mg/dl (70-99); Potassium 3.7 mmol/L (3.5-5.1); Sodium 137 mmol/L (135-145); eGFR > 60.00
--- NOTE | 2025-04-13 11:31 | CM ---
Per hospitalist, patient will d/c home today
[facility] accepted for services. Patient will d/c to daughter's home in [place]
Patient on room air
Dtrs' home address
[address] [place] [address]
Plan: Home with [place] [facility] with Lovenox injections
--- NOTE | 2025-04-13 11:37 | W.PN.REHAB ---
Today's Communication / Plan
-
- Discharge Destination: Home with outpatient SENIOR CARE PROVIDER and if she desires, home or outpatient PT/OT. Patient has minimal residual deficits. Her greatest deficits and the ones she is most prioritizing is speech, so outpatient speech therapy is
recommended. 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
Assessment/Function
-
Assessment:
Physical Exam:
General Appearance/Observation: Well-developed, well-nourished individual in no apparent distress.
Pain/Comfort Assessment: Denies
Mood/Affect: Appropriate
Integumentary/Operative Site:
Pressure Ulcer: absent
10 cm ecchymosis at medial left forearm. Per daughter, evolution from purple to yellow discoloration, appearing to heal
Eyes: Conjunctiva/Lids: normal Pupils: pupils equal round and reactive to light and Accommodation
Ears/Nose/Throat: oral mucosa moist, throat clear. Lips/Teeth/Gums: normal
Neck: No muscle spasm or tenderness
Cardiovascular: Heart: regular, no murmur
Pulses: radial 2+ bilaterally
Respiratory: Respiratory Effort/Chest Expansion: normal Auscultation: Clear to auscultation bilaterally, except for crackles at posterior bases
Gastrointestinal: abdomen not tender, no distension, normal abdominal bowel sounds
Genitourinary: No Alejandra
Rectal Exam: Deferred
Extremities: Edema: None Cyanosis: None Trophic changes: None
Neurology Exam:
Orientation: Alert, Oriented to self, Time, Place
Higher cortical function
Speech: Intact
Comprehension: Intact
Two step command: Intact
Naming: Intact
Cranial Nerves:
CNII: Pupillary light reflex: Intact Visual Field: Intact
CN III, IV, : Extraocular muscles: Intact
CN V: Facial Sensation at Forehead: Intact , Maxilla: Intact, Mandible: Intact
CN VII: Facial movement: Symmetric
CN VIII: Hearing: Normal
CN IX/X: Speech & swallow: Normal, Position of Uvula: Midline
CN XI: Shoulder shrug: Symmetric
CN XII: Tongue protrusion: Midline
Sensory:
Light touch: Intact in bilateral upper and lower extremities
Reflexes:
Biceps: 2+ bilaterally
Brachioradialis: 2+ bilaterally
Triceps: 2+ bilaterally
Patellar: 2+ bilaterally
Achilles: 2+ bilaterally
Babinski: Downgoing bilaterally
Clonus: None
Marielle: Negative bilaterally
Cerebellar: Dysmetria/Ataxia: None
Musculoskeletal:
Motor: (Manual muscle scale 0-5)
Muscle SA EF WE EE FF FA HF KE DF EHL PF
Right 5 5 5 5 5 5 5 5 5 5 5
Left 5 5 5 5 5 5 5 5 5 5 5
Tone: Normal in all extremities
Range of Motion: Passively within normal limits in all extremities
Function:
Bed Mobility: mod I
Transfers: mod I
Ambulation: independent, 200 ft. Unsteady at times
Steps: 4
ADL's: mod I
Plan
-
Ms. Joyce Troy is a 64-year-old female with a PMH notable for Takotsubo cardiomyopathy diagnosed recently on 04/06/25, who presented for right facial droop and aphasia on 04/05/25, and was found to have an M2 occlusion. She received tenecteplase on
04/05/25. Right facial droop has resolved and language deficits have improved. She feels a bit unsteady walking and is motivated to continue practicing.
Subjective
-
Date of Service: April 13, 2025
Patient Complaints: No new complaints. She states she is feeling a lot better in mood. She was happy to report improved cognitive and language performance during SENIOR CARE PROVIDER therapy.
On ROS, endorses shortness of breath with walking and physical activities, including standing for a long time while showering, in setting of newly diagnosed heart failure, secondary to stress (Takotsubo).
Vital Signs / Labs
-
Vital Signs and Labs:
Temp Pulse Resp BP Pulse Ox
98.6 F 82 16 123/69 96
04/13/25 08:00 04/13/25 08:00 04/13/25 08:00 04/13/25 08:00 04/13/25 08:00
04/13/25 08:05
04/13/25 08:05
04/13/25
08:05
RBC 3.69 L
Hgb 11.3 L
Hct 33.7 L
MPV 12.5 H
PT 25.5 H
Creatinine 0.5 L
Calcium 8.2 L
[2025-04-13 12:15] VITALS: BP 98/66
--- NOTE | 2025-04-13 12:50 | W.PN.HOSP.TC ---
Today's Communication/Plan
-
d/c home
Assessment / Plan
Assessment / Plan
Head CT
No acute intracranial hemorrhage. Questionable subtle loss of definition inferior left frontal lobe versus artifact.
Brain CT
Abnormality in the left frontal operculum.
CTA head and neck
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
MR brain
In the anterolateral left frontal lobe, there is a focal wedge-shaped area of abnormal diffusion-weighted and ADC map signal, with increased T2 and FLAIR signal as well. This would be compatible with an area of acute to subacute infarction. Small
foci of decreased signal intensity in this region on susceptibility weighted images, compatible with foci of petechial hemorrhage. Small peripheral focus of acute to subacute infarct in the lateral and inferior right parietal lobe near the
parieto-occipital junction.
Slightly more posteriorly, superiorly, and medially within the right parietal lobe, punctate focus of acute to subacute infarct.

Acute CVA - cardioembolic in nature
M2 segment thrombus
LV thrombus
-s/p TNK on 04/05/25. Case discussed between ER physician Dr. Mcgowan and [facility]. Per [facility], IAT not indicated for M2 occlusion
-patient monitored in ICU post TNK
-MR Brain report as above
-atorvastatin 40mg qhs
-Heart cath stress echocardiogram showing patient having LV thrombus.
- Patient INR is therapeutic of 2.3. At discharge patient to be discharged on Coumadin 5 mg daily per discussion with cardiology. Follow-up INR check on Wednesday and follow-up in Coumadin clinic
Non ST seg elevation ME
Tako-tsubo cardiomyopathy
-echocardiogram�EF 40% with LV thrombus.
-IV heparin drip (DVT/PE protocol) started 48 hours AFTER TNK on 04/07/25, now on weight based Lovenox for bridging to warfarin.
-Left heart catheterization 04/09/25: no obstructive CAD -- it's likely Takatsubo Cardiomyopathy based on patient's history
-Cardiology help appreciated
Hypoxic resp insuff
Acute HFmrEF
Small to moderate-sized left and small right pleural effusions
-Likely from lying in bed/prolonged bedrest and CHF
-proBNP very specific for acute CHF [id number] on 04/10/25
-CXR findings of bilateral lower lobe consolidation unlikely to be pneumonia in the absence of cough, fever or leukocytosis
-Patient is on IV Lasix 40 mg twice daily, transition to Lasix oral 40 mg daily at discharge per cardiology recommendation
-Continue incentive spirometer
Epigastric pain
-Continue Famotidine, which she also uses at home sometimes
-Patient has been having bowel movements per nurse communication on 04/10/25
-Patient's daughter says she thinks patient abdomen is distended as of 04/10/25: re-checked abdominal x-ray given mild tenderness and discomfort -- looks okay -- could just be GERD from epigastric discomfort
Constipation
-Continue Senokot-S and Miralax
-Patient has been having bowel movements per nurse communication on 04/10/25
Acute Epistaxis (noted overnight 04/08/25 to 04/09/25)
-Was not profuse. Benefits of continuing anticoagulation are greater than risks.
-Add moisture with oxygen
Nausea/vomiting
Transaminitis
-Transaminases overall trending down -- even while on Atorvastatin
-Could be from Congestion from Cardiomyopathy?
-US: Gallbladder wall thickening of unknown etiology.
-Viral Hepatitis serologies negative
Anxiety
-TOOL CHASER Citalopram
Urinary Retention
-UA and bladder scans protocol
DVT Prophylaxis: Coumadin with Lovenox subq bridging
Code Status: Full Code
More than 30 minutes spent in discharge including
Final examination of the patient
Summarizing hospital stay
Instructions for continuing care to all relevant caregivers
Preparation of discharge records, prescriptions, and referral forms
Total time spent (in minutes): 42 mins
Anticipated Discharge: Today
Subjective/Interval History
-
Date of Service: April 13, 2025
No reported problems overnight
Objective Data
-
Labs:
Laboratory Results
04/13/25
08:05
WBC 6.1
Hgb 11.3 L
Hct 33.7 L
Plt Count 152 D
PT 25.5 H
INR 2.31
Sodium 137
Potassium 3.7 D
Chloride 101
Carbon Dioxide 29
BUN 11
Creatinine 0.5 L
Glucose 96
Calcium 8.2 L
Vital Signs:
Vital Signs
Temp Pulse Resp BP Pulse Ox
98.0 F 82 16 98/66 96
04/13/25 12:15 04/13/25 12:15 04/13/25 12:15 04/13/25 12:15 04/13/25 12:15
I&O
04/12/25 04/13/25 04/14/25
06:59 06:59 06:59
Intake Total 60 / 60 240 / 240
Output Total 1200 / 1200
Balance 60 / 60 -960 / -960
Review of Systems
-
Respiratory: Reports No Symptoms
Cardiac: Reports No Symptoms
Abdomen/GI: Reports No Symptoms
--- NOTE | 2025-04-13 17:20 | W.DCSUMMARY ---
Discharge Summary
Discharge Data
Date of Admission: 04/05/25
Date of Discharge: 04/13/25
-
Pending Results: No
Hospital Course
Discharging Physician : Dr Jameson Montes De Oca
Disposition : To home
Primary care physician :
Principal Discharge diagnosis :
Cardioembolic stroke involving left M2 segment of internal carotid artery
Left ventricular thrombus
Takotsubo cardiomyopathy
Acute heart failure with midrange ejection fraction
Hypoxic respiratory insufficiency
Epistaxis from blood thinners
Episode of nausea/vomiting
Mild transaminitis
Chronic Discharge diagnosis :
Depression/anxiety
Hospital Course :
Patient is a 64-year-old female with above-mentioned past medical history was brought in after noted to having new left facial droop and speech difficulty. In ER patient had emergent CT head and CTA head and neck which showed an M2 segment
thrombus. Patient was provided TNK/thrombolytics and was admitted to ICU for closer monitoring. Case was discussed with [place] teleneurologist and patient was not a candidate for IAT. Patient had a follow-up MRI brain which showed a wedge-shaped
ischemia in anterolateral left frontal lobe. As part of workup patient had echocardiogram done which showed suppressed EF with left ventricular thrombus. Patient was started on IV heparin drip. Patient was taken to left heart catheterization
which showed nonobstructive CAD and patient will low EF was felt to be related to Takotsubo cardiomyopathy. Patient was bridged to warfarin in the hospital.
Associated with this patient also was felt to having heart failure exacerbation and some hypoxic respite insufficiency. Patient was started on IV diuretic therapy with which patient improvement in symptoms and was able to be weaned off of oxygen.
From stroke perspective patient had improvement in symptoms and PT cleared patient for home level discharge.
Important imaging findings :
None
Procedure findings :
None
Discharge Plan
-
Patient Disposition: Home with Home Care
Discharge Diagnosis/Procedures: Cardio-embolic stroke, LV thrombus, Tako-tsubo cardiomyopathy,
Condition: Fair
Diet: 2 Gram Sodium and Restrict fluids to 48 oz
Activity: As tolerated
Driving Restrictions: Not until seen by your Dr
Bathing Restrictions: OK to Shower
Blood Work: INR check on Wednesday
Other Services: VN and PT
Stand Alone Forms: DC Instructions- Cath/EP Lab
Referrals:
Regina Rodas DO [Family Provider, Internal Medicine]
Debra Lugo PA-C [Specified Professional Personl, Cardiology] - 05/03/25 8:20 am
Prescriptions:
New
furosemide 40 mg Tablet
40 mg PO DAILY Qty: 30 2RF
atorvastatin 40 mg Tablet
40 mg PO QPM Qty: 30 0RF
carvedilol 3.125 mg Tablet
3.125 mg PO BID Qty: 60 2RF
lisinopril 2.5 mg Tablet
2.5 mg PO DAILY Qty: 30 2RF
warfarin 5 mg tablet
5 mg PO DAILY Qty: 30 0RF
Continued
citalopram 20 mg Tablet
20 mg PO HS
Discharge Orders:
Discharge Patient (As Directed); Ordered 04/13/25
Ordered By: Jameson Montes De Oca
Discharge Date and Time
Discharge Date/Time: 04/13/25 12:43
Print Language: INDONESIAN
== END 2025-04-13 12:43 | disposition home health service (06) | DRG 61 ==
LOC: 4 WEST ACU 23:45
PROVIDERS: Hospitalist; Internal Medicine Interventional Cardiology; Nurse Practitioner Family; Registered Nurse; ADMITTING PHYSICIAN Student in an Organized Health Care Education/Training Program; ATTENDING PHYSICIAN Hospitalist; CONSULT PHYSICIAN Physical Medicine & Rehabilitation; CONSULT PHYSICIAN Psychiatry & Neurology Neurology; EMERGENCY PHYSICIAN Emergency Medicine; FAMILY PHYSICIAN Internal Medicine; OTHER PHYSICIAN Internal Medicine; OTHER PHYSICIAN Internal Medicine Cardiovascular Disease
PROC: 3E03317 Introduction of Other Thrombolytic into Peripheral Vein, Percutaneous Approach (ICD-10-PCS; 2025-04-05)
PROC: B2111ZZ Fluoroscopy of Multiple Coronary Arteries using Low Osmolar Contrast (ICD-10-PCS; 2025-04-09)
PROC: 4A023N7 Measurement of Cardiac Sampling and Pressure, Left Heart, Percutaneous Approach (ICD-10-PCS; 2025-04-09)
DX: I63.412 Cerebral infarction due to embolism of left middle cerebral artery (principal); I50.21 Acute systolic (congestive) heart failure; I61.8 Other nontraumatic intracerebral hemorrhage; I51.81 Takotsubo syndrome; I5A Non-ischemic myocardial injury (non-traumatic); D68.32 Hemorrhagic disorder due to extrinsic circulating anticoagulants; I51.3 Intracardiac thrombosis, not elsewhere classified; R09.02 Hypoxemia; R04.0 Epistaxis; T45.515A Adverse effect of anticoagulants, initial encounter; R11.2 Nausea with vomiting, unspecified; R47.01 Aphasia; F32.A Depression, unspecified; F41.9 Anxiety disorder, unspecified; R29.810 Facial weakness; D72.829 Elevated white blood cell count, unspecified; R10.13 Epigastric pain; K59.00 Constipation, unspecified; R33.9 Retention of urine, unspecified; Z63.4 Disappearance and death of family member
CPT/HCPCS: 0042T; 70450; 70496; 70498; 70551; 71046; 74019; 76700; 80048; 80053; 80061; 81003; 81015; 82040; 82248; 82607; 82746; 82962; 83036; 83735; 83880; 84484; 85025; 85027; 85610; 85652; 85730; 86140; 86704; 86705; 86706; 86708; 86709; 86803; 87086; 87340; 87522; 92507; 92523; 92526; 92610; 93005; 93306; 93454; 93970; 96374; 97116; 97129; 97163; 97167; 97530; 97535; 99152; 99153; 99291; C1894; J3101; P9047; Q9967